=== PATIENT | female | born 1985 | race Caucasian/White ===

== ENCOUNTER → 2016-06-27 | Outpatient (REF) | payer OTHER, SELFPAY ==
[2016-06-27 14:16] LABS: ALBUMIN/GLOBULIN RATIO 1.03 (1.00-1.93); ALKALINE PHOSPHATASE 236 U/L (45-117); ALT/SGPT 48 U/L (12-78); ANION GAP 9 MEQ/L (8-16); AST/SGOT 172 U/L (15-37); BILIRUBIN,TOTAL 0.9 MG/DL (0.2-1.0); BLOOD UREA NITROGEN 9 MG/DL (7-18); CARBON DIOXIDE LEVEL 30 MEQ/L (21-32); CHLORIDE LEVEL 101 MEQ/L (98-107); CREATININE FOR GFR 0.64 MG/DL (0.55-1.02); GLOMERULAR FILTRATION RATE > 60.0 (>60); GLUCOSE, FASTING 106 MG/DL (70-105); POTASSIUM SERUM 4.3 MEQ/L (3.5-5.1); SODIUM LEVEL 140 MEQ/L (136-145); TOTAL PROTEIN 7.9 GM/DL (6.4-8.2)
[2016-06-27 14:36] LABS: BASO % 0.4 % (0.0-1.0); EOS # 0.3 K/mm3 (0.0-0.50); EOS % 3.1 % (0.0-3.0); LARGE UNSTAINED CELL # 0.1 K/mm3 (0.0-0.4); LARGE UNSTAINED CELL % 0.8 % (0.0-4.0); LYMPH # 1.6 K/mm3 (1.5-4.5); LYMPH % 17.7 % (24.0-44.0); MEAN CORPUSCULAR HEMOGLOBIN 34.5 pg (27.0-33.0); MEAN CORPUSCULAR HGB CONC 31.2 g/dl (32.0-36.5); MEAN CORPUSCULAR VOLUME 110.6 fl (80.0-96.0); MONO # 0.5 K/mm3 (0.0-0.8); MONO % 5.6 % (0.0-5.0); NEUTROPHILS # 6.3 K/mm3 (1.8-7.7); NEUTROPHILS % 72.4 % (36.0-66.0); PLATELET COUNT, AUTOMATED 196 k/mm3 (150-450); RED CELL DISTRIBUTION WIDTH 18.3 % (11.5-14.5); WHITE BLOOD COUNT 8.7 K/mm3 (4.0-10.0)
[2016-06-27 14:44] LABS: ADD MORPHOLOGY? YES; FOLATE 2.7 NG/ML; VITAMIN B12 LEVEL 609 PG/ML
[2016-06-27 15:20] LABS: ANISOCYTOSIS 2+; STOMATOCYTES 1+
[2016-06-27 15:42] LABS: ERYTHROCYTE SEDIMENTATION RATE 21 mm/hr (0-20)
[2016-06-28 12:49] LABS: ALBUMIN % 52.6 % (55.8-66.1)
[2016-06-28 12:50] LABS: ALBUMIN 4.16 GM/DL (3.29-5.55)
[2016-07-01 14:17] LABS: Lyme Disease IgG/IgM Antibodie <0.91 ISR (0.00-0.90); Lyme Disease IgM Ab Quantitati <0.80 index (0.00-0.79)
== END ==
LOC: M LABNEURO 13:12
PROVIDERS: ATTEND Psychiatry & Neurology Neurology
DX: G62.9 Polyneuropathy, unspecified (principal)

== ENCOUNTER → 2016-08-23 | Outpatient (CLI) | payer OTHER ==
[2016-08-23 10:59] LABS: BASO % 0.4 % (0.0-1.0); EOS # 0.3 K/mm3 (0.0-0.50); EOS % 3.3 % (0.0-3.0); LARGE UNSTAINED CELL # 0.1 K/mm3 (0.0-0.4); LARGE UNSTAINED CELL % 1.1 % (0.0-4.0); LYMPH # 1.9 K/mm3 (1.5-4.5); LYMPH % 22.6 % (24.0-44.0); MEAN CORPUSCULAR HEMOGLOBIN 32.9 pg (27.0-33.0); MEAN CORPUSCULAR HGB CONC 31.9 g/dl (32.0-36.5); MEAN CORPUSCULAR VOLUME 103.4 fl (80.0-96.0); MONO # 0.5 K/mm3 (0.0-0.8); MONO % 5.9 % (0.0-5.0); NEUTROPHILS # 5.4 K/mm3 (1.8-7.7); NEUTROPHILS % 66.6 % (36.0-66.0); PLATELET COUNT, AUTOMATED 195 k/mm3 (150-450); RED CELL DISTRIBUTION WIDTH 15.2 % (11.5-14.5); WHITE BLOOD COUNT 8.2 K/mm3 (4.0-10.0)
[2016-08-23 11:25] LABS: ALBUMIN 3.5 GM/DL (3.2-5.2); ALBUMIN/GLOBULIN RATIO 0.92 (1.00-1.93); ALKALINE PHOSPHATASE 258 U/L (45-117); ALT/SGPT 63 U/L (12-78); ANION GAP 7 MEQ/L (8-16); AST/SGOT 202 U/L (15-37); BILIRUBIN,TOTAL 0.8 MG/DL (0.2-1.0); BLOOD UREA NITROGEN 8 MG/DL (7-18); CALCIUM LEVEL 9.2 MG/DL (8.5-10.1); CARBON DIOXIDE LEVEL 29 MEQ/L (21-32); CHLORIDE LEVEL 103 MEQ/L (98-107); CHOLESTEROL LEVEL 163 MG/DL (<200); CREATININE FOR GFR 0.58 MG/DL (0.55-1.02); FREE T4 1.15 NG/DL (0.76-1.46); GLOMERULAR FILTRATION RATE > 60.0 (>60); GLUCOSE, FASTING 97 MG/DL (70-105); POTASSIUM SERUM 4.9 MEQ/L (3.5-5.1); SODIUM LEVEL 139 MEQ/L (136-145); TOTAL PROTEIN 7.3 GM/DL (6.4-8.2); TRIGLYCERIDES LEVEL 156 MG/DL (<150)
== END ==
LOC: M LAB 10:00
PROVIDERS: ATTEND Physician Assistant
DX: I12.9 Hypertensive chronic kidney disease with stage 1 through stage 4 chronic kidney disease, or unspecified chronic kidney disease (principal); N18.9 Chronic kidney disease, unspecified

== ENCOUNTER → 2016-10-01 | Outpatient (CLI) | payer OTHER ==
--- NOTE | 2016-10-01 18:19 | ECHO ---
DATE OF PROCEDURE: 10/01/2016 REFERRING PHYSICIAN: CHRISTY Boyer PATIENT LOCATION: Outpatient. INDICATION: Edema. HEIGHT: 165 cm WEIGHT: 100 kg DIMENSIONS: IVS: 1.2 LV: 3.8 LVPW: 1.2 LA: 3.4 Aorta: 2.5 FINDINGS: The study is of acceptable technical quality considering patient's body habitus. Left ventricle is of normal size and systolic function with estimated ejection fraction (EF) of 60 to 65%. Mild left ventricular hypertrophy is noted. I cannot rule out subtle wall motion abnormalities with certainty. The right ventricle appears normal. The left atrium appears mildly enlarged. Right atrium is normal. Aortic valve is normal. Mitral valve exhibits mild degenerative abnormalities. Tricuspid valve appears normal. Pulmonic valve also appears normal. No pericardial effusion is noted. Inferior vena cava is normal size. Aortic root is normal. Aortic arch was well seen and appears normal. Abdominal aorta was not visualized. Doppler interrogation reveals no aortic valvular disease. There is no significant mitral stenosis, but mild mitral insufficiency. There is mild tricuspid insufficiency. Calculated pulmonary artery pressure is within normal limits. Pulmonic valve is functionally competent. Mitral inflow pattern and tissue Doppler imaging of mitral annulus reveal grade 1 diastolic dysfunction. CONCLUSIONS: 1. Study is of acceptable technical quality. 2. Normal left ventricle (LV) size with mild left ventricle hypertrophy and normal LV systolic function. Grade 1 diastolic dysfunction. 3. No significant valvular disease. 4. Likely normal central venous pressure and normal pulmonary artery pressure. COMMENTS: Subacute bacterial endocarditis (SBE) prophylaxis is not recommended. The study does not support cardiac cause of peripheral edema. [facility]
== END ==
LOC: M CARPUL 10:26
PROVIDERS: ATTEND Physician Assistant
DX: R60.9 Edema, unspecified (principal)

== ENCOUNTER → 2016-10-17 | Outpatient (CLI) | payer OTHER ==
[2016-10-17 14:10] LABS: VITAMIN B12 LEVEL 390 PG/ML
[2016-10-17 14:11] LABS: FOLATE > 24.0 NG/ML
[2016-10-17 14:14] LABS: ALBUMIN 3.4 GM/DL (3.2-5.2); ALBUMIN/GLOBULIN RATIO 0.83 (1.00-1.93); ALKALINE PHOSPHATASE 193 U/L (45-117); ALT/SGPT 55 U/L (12-78); ANION GAP 10 MEQ/L (8-16); AST/SGOT 81 U/L (15-37); BILIRUBIN,DIRECT 0.3 MG/DL (0.0-0.2); BILIRUBIN,TOTAL 0.6 MG/DL (0.2-1.0); BLOOD UREA NITROGEN 13 MG/DL (7-18); CALCIUM LEVEL 8.6 MG/DL (8.5-10.1); CARBON DIOXIDE LEVEL 29 MEQ/L (21-32); CHLORIDE LEVEL 99 MEQ/L (98-107); CREATININE FOR GFR 0.61 MG/DL (0.55-1.02); GLOMERULAR FILTRATION RATE > 60.0 (>60); GLUCOSE, FASTING 109 MG/DL (70-105); POTASSIUM SERUM 4.2 MEQ/L (3.5-5.1); SODIUM LEVEL 138 MEQ/L (136-145); TOTAL PROTEIN 7.5 GM/DL (6.4-8.2)
[2016-10-17 14:20] LABS: GAMMA GLUTAMYLTRANSPEPTIDASE 1096 U/L (5-55)
[2016-10-17 15:25] LABS: LABILE ALKPHOS 134 U/L; STABLE ALKPHOS 59 U/L
== END ==
LOC: M SMT 11:26
PROVIDERS: ATTEND Physician Assistant
DX: R60.9 Edema, unspecified (principal); R94.5 Abnormal results of liver function studies

== ENCOUNTER → 2016-11-21 | Outpatient (CLI) | payer OTHER ==
[~2016-11-21] MED LIST: ADV100INH INH; ADV250INH INH; AMLO5TAB2 PO; CYCL10TA PO; CYMB60CA3 PO; FIRS1SOL3 PO; FOLI1TAB4 PO; GABA600T PO; HYDR25TAB PO; LISI-538 PO; LOVE1INJ SC; MECL12.575 PO; MORP2SY IV; OMEP20CA3 PO; ONDA4VLL IV; OPTI0.5D5 OU; OXAZ10CA3 PO; OXAZ15CA4 PO; PENT40TASA PO; PERC2.5T PO; PROT40IN4 IV; SUMA100T2 PO; THIA100T6 PO; THIA100TA PO; VITMTA PO
[2016-11-21 19:20] LABS: ALBUMIN 3.8 GM/DL (3.2-5.2); ALBUMIN/GLOBULIN RATIO 0.83 (1.00-1.93); ALKALINE PHOSPHATASE 252 U/L (45-117); ALT/SGPT 72 U/L (12-78); ANION GAP 11 MEQ/L (8-16); AST/SGOT 122 U/L (15-37); BLOOD UREA NITROGEN 8 MG/DL (7-18); CALCIUM LEVEL 8.6 MG/DL (8.5-10.1); CARBON DIOXIDE LEVEL 29 MEQ/L (21-32); CHLORIDE LEVEL 100 MEQ/L (98-107); CHOLESTEROL LEVEL 214 MG/DL (<200); CREATININE FOR GFR 0.67 MG/DL (0.55-1.02); FREE T4 1.21 NG/DL (0.76-1.46); GLOMERULAR FILTRATION RATE > 60.0 (>60); GLUCOSE, FASTING 142 MG/DL (70-105); POTASSIUM SERUM 3.7 MEQ/L (3.5-5.1); SODIUM LEVEL 140 MEQ/L (136-145); TOTAL PROTEIN 8.4 GM/DL (6.4-8.2); TRIGLYCERIDES LEVEL 156 MG/DL (<150)
[2016-11-21 19:43] LABS: BASO # 0.1 K/mm3 (0.0-0.2); BASO % 0.9 % (0.0-1.0); EOS # 0.2 K/mm3 (0.0-0.50); EOS % 2.4 % (0.0-3.0); LARGE UNSTAINED CELL # 0.1 K/mm3 (0.0-0.4); LARGE UNSTAINED CELL % 1.5 % (0.0-4.0); LYMPH # 2.5 K/mm3 (1.5-4.5); LYMPH % 26.5 % (24.0-44.0); MEAN CORPUSCULAR HEMOGLOBIN 33.5 pg (27.0-33.0); MEAN CORPUSCULAR HGB CONC 33.2 g/dl (32.0-36.5); MEAN CORPUSCULAR VOLUME 100.9 fl (80.0-96.0); MONO # 0.5 K/mm3 (0.0-0.8); MONO % 5.1 % (0.0-5.0); NEUTROPHILS % 63.7 % (36.0-66.0); PLATELET COUNT, AUTOMATED 209 k/mm3 (150-450); RED CELL DISTRIBUTION WIDTH 13.6 % (11.5-14.5); WHITE BLOOD COUNT 9.4 K/mm3 (4.0-10.0)
== END ==
LOC: M SMT 11:40
PROVIDERS: ATTEND Physician Assistant
DX: I12.9 Hypertensive chronic kidney disease with stage 1 through stage 4 chronic kidney disease, or unspecified chronic kidney disease (principal)

== ENCOUNTER → 2016-12-10 | Outpatient (CLI) | payer OTHER ==
[2016-12-10 18:13] LABS: ALBUMIN 3.1 GM/DL (3.2-5.2); ALBUMIN/GLOBULIN RATIO 0.82 (1.00-1.93); ALKALINE PHOSPHATASE 249 U/L (45-117); ALT/SGPT 81 U/L (12-78); ANION GAP 12 MEQ/L (8-16); AST/SGOT 157 U/L (15-37); BILIRUBIN,TOTAL 1.4 MG/DL (0.2-1.0); BLOOD UREA NITROGEN 5 MG/DL (7-18); CALCIUM LEVEL 8.3 MG/DL (8.5-10.1); CARBON DIOXIDE LEVEL 25 MEQ/L (21-32); CHLORIDE LEVEL 106 MEQ/L (98-107); CREATININE FOR GFR 0.61 MG/DL (0.55-1.02); GLOMERULAR FILTRATION RATE > 60.0 (>60); GLUCOSE, FASTING 121 MG/DL (70-105); POTASSIUM SERUM 3.3 MEQ/L (3.5-5.1); SODIUM LEVEL 143 MEQ/L (136-145); TOTAL PROTEIN 6.9 GM/DL (6.4-8.2)
[2016-12-10 18:19] LABS: FOLATE 18.8 NG/ML; VITAMIN B12 LEVEL 492 PG/ML
[2016-12-10 19:03] LABS: BASO % 0.3 % (0.0-1.0); EOS # 0.2 K/mm3 (0.0-0.50); EOS % 2.1 % (0.0-3.0); LARGE UNSTAINED CELL # 0.1 K/mm3 (0.0-0.4); LARGE UNSTAINED CELL % 1.5 % (0.0-4.0); LYMPH # 1.8 K/mm3 (1.5-4.5); LYMPH % 22.5 % (24.0-44.0); MEAN CORPUSCULAR HEMOGLOBIN 34.1 pg (27.0-33.0); MEAN CORPUSCULAR HGB CONC 32.2 g/dl (32.0-36.5); MEAN CORPUSCULAR VOLUME 105.8 fl (80.0-96.0); MONO # 0.5 K/mm3 (0.0-0.8); MONO % 6.8 % (0.0-5.0); NEUTROPHILS % 66.9 % (36.0-66.0); PLATELET COUNT, AUTOMATED 125 k/mm3 (150-450); RED CELL DISTRIBUTION WIDTH 15.8 % (11.5-14.5); WHITE BLOOD COUNT 7.5 K/mm3 (4.0-10.0)
[2016-12-10 19:20] LABS: ADD MORPHOLOGY? YES
[2016-12-10 22:23] LABS: ANISOCYTOSIS 1+
== END ==
LOC: M SMT 10:20
PROVIDERS: ATTEND Physician Assistant
DX: E83.119 Hemochromatosis, unspecified (principal); R73.9 Hyperglycemia, unspecified

== ENCOUNTER 2016-12-19 01:58 | Inpatient (IN) | payer OTHER ==
[~2016-12-19] VITALS: Ht 165.1 cm; Wt 123.0 kg
[2016-12-19] MEDS ORDERED: ADV250INH INH (02:22)
[2016-12-19] MEDS ORDERED: GABA600T PO (02:22)
[2016-12-19] MEDS ORDERED: AMLO5TAB2 PO (02:22)
[2016-12-19] MEDS ORDERED: OMEP20CA3 PO (02:22)
[2016-12-19] MEDS ORDERED: CYMB60CA3 PO (02:22)
[2016-12-19] MEDS ORDERED: CYCL10TA PO (02:22)
[2016-12-19] MEDS ORDERED: SUMA100T2 PO (02:22)
[2016-12-19] MEDS ORDERED: KETOROLAC 30 MG/ML VIAL (J1885) As Ordered ONE (03:08)
[2016-12-19 03:15] LABS: BASO # 0.1 K/mm3 (0.0-0.2); BASO % 0.7 % (0.0-1.0); EOS # 0.2 K/mm3 (0.0-0.50); EOS % 2.7 % (0.0-3.0); LARGE UNSTAINED CELL # 0.1 K/mm3 (0.0-0.4); LARGE UNSTAINED CELL % 1.4 % (0.0-4.0); LYMPH # 2.5 K/mm3 (1.5-4.5); LYMPH % 25.1 % (24.0-44.0); MEAN CORPUSCULAR HEMOGLOBIN 33.6 pg (27.0-33.0); MEAN CORPUSCULAR HGB CONC 32.6 g/dl (32.0-36.5); MEAN CORPUSCULAR VOLUME 103.2 fl (80.0-96.0); MONO # 0.5 K/mm3 (0.0-0.8); MONO % 5.1 % (0.0-5.0); NEUTROPHILS % 64.9 % (36.0-66.0); PLATELET COUNT, AUTOMATED 202 k/mm3 (150-450); WHITE BLOOD COUNT 9.2 K/mm3 (4.0-10.0)
[2016-12-19] MEDS ORDERED: KETOROLAC 30 MG/ML VIAL (J1885) IV ONE (03:15)
[2016-12-19] MEDS ORDERED: NS 1,000 ML IV ONE (03:15)
[2016-12-19] MEDS ORDERED: METOCLOPRAMIDE INJ 10MG/2ML VIAL (J2765) IV ONE (03:15)
[2016-12-19 03:26] LABS: ALBUMIN 3.2 GM/DL (3.2-5.2); ALBUMIN/GLOBULIN RATIO 0.82 (1.00-1.93); ALKALINE PHOSPHATASE 302 U/L (45-117); ALT/SGPT 77 U/L (12-78); AMYLASE 258 U/L (25-115); ANION GAP 15 MEQ/L (8-16); AST/SGOT 185 U/L (15-37); BILIRUBIN,DIRECT 1.4 MG/DL (0.0-0.2); BLOOD UREA NITROGEN 3 MG/DL (7-18); CALCIUM LEVEL 7.7 MG/DL (8.5-10.1); CARBON DIOXIDE LEVEL 27 MEQ/L (21-32); CHLORIDE LEVEL 103 MEQ/L (98-107); GLOMERULAR FILTRATION RATE > 60.0 (>60); GLUCOSE, FASTING 167 MG/DL (70-105); POTASSIUM SERUM 3.5 MEQ/L (3.5-5.1); SODIUM LEVEL 145 MEQ/L (136-145); TOTAL PROTEIN 7.1 GM/DL (6.4-8.2)
[2016-12-19] MEDS ORDERED: diphenhydrAMINE INJ 50MG/ML VIAL (J1200) IV STA (04:05)
[2016-12-19] MEDS ORDERED: ISOVUE-370 76% 100ML VIAL (Q9967) As Ordered ONE (04:10)
[2016-12-19] MEDS ORDERED: MORPHINE 4 MG/ML 1ML SYRINGE IV ONE (04:15)
--- NOTE | 2016-12-19 04:54 | REP ---
Clinical: Abdominal pain and pancreatitis. Technique: Axial contrast enhanced images from the lung bases to the pubic symphysis using 100 ml Isovue 370 intravenous contrast material with coronal and sagittal re-formations. Comparison: None. Findings: Moderate peripancreatic inflammatory stranding and adenopathy is consistent with acute pancreatitis. The gallbladder is mildly distended with small amount of pericholecystic fluid which may reflect underlying acute cholecystitis. The adjacent duodenum demonstrates mural thickening and is encompassed by the peripancreatic inflammatory stranding suggesting the possibility of associated duodenitis. No pseudocyst or drainable collection/abscess identified. The liver demonstrates diffuse heterogeneity suggesting fatty infiltration and/or hepatocellular disease. Spleen, bilateral adrenal glands and right kidney are normal. High density focus within the left kidney may represent nonobstructing calculi versus focus of retained contrast or foreign body related to prior procedure. The enteric system is without obstruction and a mild enterocolitis secondary to pancreatitis cannot be excluded. Pelvis demonstrates normal bladder and age-appropriate uterus/adnexa. No ascites. No free air. No significant retroperitoneal adenopathy. Abdominal aorta and vasculature appears normal. Surrounding musculoskeletal structures are grossly intact without focal osseous abnormality. Lung bases are clear. Impression: 1. Peripancreatic inflammatory stranding and adenopathy is consistent with acute pancreatitis. No pseudocyst, drainable fluid collection/abscess or ascites. Secondary duodenitis and enterocolitis cannot be excluded. 2. Fatty infiltration and/or hepatocellular disease involving the liver is appreciated. 3. The gallbladder is moderately distended with small amount of pericholecystic fluid which is nonspecific, but associated cholecystitis cannot be excluded. 4. Focal radiodense material in the left renal pelvis requires correlation. Differential diagnosis includes foreign body related to prior procedure, focus of retained contrast material, nephrolithiasis. Signed by Chandrakant Allen MD 12/19/2016 04:46 A
[2016-12-19] MEDS ORDERED: VITMTA PO (05:26)
[2016-12-19] MEDS ORDERED: ADV100INH INH (05:26)
[2016-12-19] MEDS ORDERED: OPTI0.5D5 OU (05:26)
[2016-12-19] MEDS ORDERED: HYDR25TAB PO (05:26)
[2016-12-19] MEDS ORDERED: LISI-538 PO (05:26)
[2016-12-19] MEDS ORDERED: MECL12.575 PO (05:26)
[2016-12-19] MEDS ORDERED: IPRATROPIUM 0.5MG/ALBUTEROL 2.5MG INH SOL UD 3ML (DUONEB)(J7620) NEB PRN (05:30)
[2016-12-19] MEDS ORDERED: OXAZEPAM 10 MG CAP PO PRN (05:30)
[2016-12-19] MEDS ORDERED: KETOROLAC 30 MG/ML VIAL (J1885) IV PRN (05:30)
[2016-12-19] MEDS ORDERED: MECLIZINE 12.5 MG TAB PO PRN (05:45)
[2016-12-19] MEDS ORDERED: CYCLOBENZAPRINE 10 MG TAB PO PRN (05:45)
[2016-12-19 06:10] VITALS: BP 146/94
--- NOTE | 2016-12-19 06:22 | HPE ---
DATE OF ADMISSION: 12/19/2016 CODE STATUS: full code CHIEF COMPLAINT: Abdominal pain. HISTORY OF PRESENT ILLNESS: This patient is a 31-year-old female with known history of alcohol abuse and alcohol-related pancreatitis presents to the emergency department after 24 hours of subjective fevers, chills, nausea, vomiting, upper abdominal cramping, colicky tight sharp pain with nausea and vomiting. She has had loose stool with no hematemesis, no hematochezia or melena. She does state that she drinks quite a bit of alcohol, was unable to quantify specifically for me but she does recognize that she does have an issue with alcohol ingestion. Her is accompanying her bedside. He also did state that they are aware that she does get pancreatitis related to her alcoholism. She did inform me that she does have a history of problems with her gallbladder in the past. She has not had a cholecystectomy but informed me that she has never been scheduled for gallbladder surgery. PAST MEDICAL HISTORY: 1. 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 2. Alcohol abuse. 3. Chronic low back pain 4. Depression.5 5. Hypertension. 6. Intermittent benign positional vertigo. 7. Gastrointestinal reflux disease (GERD). 8. Asthma/chronic pulmonary obstructive disease (COPD). 9. History of migraine headaches. 10. History of dry eyes. PAST SURGICAL HISTORY: Unremarkable. FAMILY HISTORY: Noncontributory. ALLERGIES: MORPHINE. HOME MEDICATIONS: - amlodipine 5 mg daily - Flexeril 10 mg daily - Cymbalta 60 mg daily - Neurontin 600 mg three times a day - hydrochlorothiazide 25 mg daily - lisinopril 20 mg daily - meclizine 12.5 mg every 6 hours taken as needed - omeprazole 20 mg daily - multivitamin 1 tablet daily - Advair Diskus 100/50 microgram inhaler one inhalation twice a day - Sumatriptan 100 mg as directed for migraines. - Refresh ophthalmic as directed for dry eyes four times a day as needed REVIEW OF SYSTEMS: CONSTITUTIONAL: She states she has had some subjective fevers, chills, no rigors. She has had decreased appetite as outlined above. HEENT: No headache, lightheaded, dizziness, blurry vision, double vision or tinnitus but she felt she has had dry mouth. PULMONARY: She denies productive sputum. She does have continuous cough related to her COPD/asthma and does continue to smoke. We did discuss smoking cessation, education was provided and encouraged to discontinue. I did offer a Nicoderm patch which she refused. CARDIOVASCULAR: She denies chest pain, paroxysmal nocturnal dyspnea (PND), or orthopnea. No lower extremity edema. GASTROINTESTINAL (GI): As outlined above, epigastric pain with distension, nausea, vomiting, unable to tolerate oral intake, loose stool but she denies any hematemesis. No hematochezia or melena. GENITOURINARY (): No dysuria, frequency or hematuria. MUSCULOSKELETAL: No bone loss or joint pain swelling or erythema. NEUROLOGIC: No paresthesias or paralysis. ENDOCRINE: Negative for diabetes. Negative for thyroid disorder. LYMPHATICS: No lumps, bumps, swelling in neck, axilla or groin. No night sweats. No weight loss. HEMATOLOGY: No bleeding or bruising disorder. No venous thromboembolism. ONCOLOGY: No history of cancer. PSYCHIATRIC: Positive for depression but she denies suicidal ideation. No audio or visual hallucinations. REVIEW OF SYSTEMS: 10-point review of systems complete, pertinent positives are listed. PHYSICAL EXAMINATION: VITAL SIGNS: Temperature is 98.6, pulse 102 and regular, respiratory rate is 18 , blood pressure (BP) 149/99, SPO2 is 96% on room air. GENERAL: The patient appears to be in no acute distress. She is alert, pleasant. HEENT: Head is atraumatic, normocephalic. Eyes: Pupils equal, round, and reactive to light and accommodation (PERRLA), throat clear. NECK: Supple. Unable to evaluate jugular venous distention (JVD) due to body habitus. Mucous membranes do appear to be slightly dry. LUNGS: Lungs are clear to auscultation bilaterally. HEART: Regular rate and rhythm. ABDOMEN: Obese, distended. Positive bowel sounds. She does have some epigastric tenderness noted but no peritoneal signs. EXTREMITIES: No edema. No calf tenderness. LABORATORY DATA: Alcohol level 0.317. White count 9.2, hemoglobin 14, platelets are 202. Sodium 145, potassium 3.5, chloride 103, bicarb 27, anion gap 15, BUN is 3, creatinine 0.6, glucose is 167, calcium 7.7, total bilirubin is 2.0, direct bilirubin is 1.4, AST 185, ALT is 77, alkaline phosphatase 302, albumin 3.2, amylase 258, lipase 3704. CT of the abdomen and pelvis, peripancreatic inflammatory stranding. Adenopathy consistent with acute pancreatitis. No pseudocyst, no drainable fluid collection, no abscess or ascites noted. She does have some secondary duodenitis and colitis could not be excluded. Fatty infiltration and/or hepatocellular disease involving the liver is appreciated. This will likely need outpatient followup. The gallbladder did appear to be moderately distended with a small amount of pericholecystic fluid nonspecific, but associated cholecystitis could not be excluded. Focal radiodensity material in the left renal pelvis requiring correlation, possibly retained contrast material; nephrolithiasis versus foreign body related prior procedure. IMPRESSION: This patient is a 31-year-old female who unfortunately does have ongoing issues with chronic alcohol abuse and recurrent pancreatitis, as well as gallbladder disease. She will need to be admitted. We will make her nothing by mouth, continue with intravenous (IV) fluids as outlined and pain control and will do some further workup on her intra-abdominal findings on the CT scan. PROBLEM LIST: 1. Acute pancreatitis. 2. Alcohol abuse. 3. Gallbladder disease. 4. Fatty liver disease. 5. Questionable left renal disease. 6. Chronic pulmonary obstructive disease (COPD). 7. Hypertension. 8. Depression. 9. Chronic low back pain. PLAN: The patient admitted to med-surg, nothing by mouth, intravenous (IV) fluids. Will continue her home medications. Hold parameters on her blood pressure medications. Will additionally start her on Serax, thiamine, multivitamin and monitor for alcohol withdrawal symptoms. IV Ativan as needed for breakthrough anxiety. Will also place a patient and family services (PFS) consult regarding her continued alcoholism. Will do an ultrasound of the abdomen. Will plan on repeating her labs in the morning, follow her lipase. Deep venous thrombosis ( DVT) prophylaxis with Lovenox. DISPOSITION: Anticipate her stay to be greater than two midnights. [facility]
[2016-12-19] MEDS: LORazepam 2 MG/ML VIAL (J2060) IV PRN ×2 (06:31→16:09)
[2016-12-19] MEDS: NS 1,000 ML IV SCH ×5 (06:32→21:16)
[2016-12-19] MEDS: PERCOCET 5MG/325MG TAB PO PRN ×3 (06:32→18:04)
[2016-12-19] MEDS: IPRATROPIUM 0.5MG/ALBUTEROL 2.5MG INH SOL UD 3ML (DUONEB)(J7620) NEB SCH ×3 (08:00→23:31)
[2016-12-19] MEDS: ADVAIR HFA 45/21MCG INHALER INH SCH ×2 (08:51→20:13)
[2016-12-19] MEDS: GABAPENTIN 300 MG CAP PO SCH ×3 (10:30→21:50)
[2016-12-19] MEDS: ONDANSETRON 4MG/2ML VIAL (J2405) IV PRN (10:30)
[2016-12-19] MEDS: DULoxetine 30 MG CAP (CYMBALTA) PO SCH (10:30)
[2016-12-19] MEDS: FOLIC ACID 1 MG TAB PO SCH (10:31)
[2016-12-19] MEDS: amLODIPine 5 MG TAB PO SCH (10:31)
[2016-12-19] MEDS: OMEPRAZOLE 20 MG CAP PO SCH (10:31)
[2016-12-19] MEDS: LISINOPRIL 20 MG TAB PO SCH (10:32)
[2016-12-19] MEDS: hydroCHLOROthiazide 25 MG TAB PO SCH (10:32)
[2016-12-19] MEDS: THIAMINE 100 MG TAB PO SCH (10:32)
[2016-12-19] MEDS: MULTIVITAMINS/MINERALS THERAP 1 TAB PO SCH (10:32)
[2016-12-19] MEDS: ENOXAPARIN 40 MG/0.4 ML SYRINGE (J1650) SC SCH (10:33)
[2016-12-19 14:00] VITALS: BP 141/94
[2016-12-19 14:40] VITALS: BP 141/94
[2016-12-19] MEDS: MORPHINE 2 MG/ML 1ML SYRINGE IV PRN ×2 (15:20→21:50)
[2016-12-19] MEDS: LORazepam 2 MG TAB PO SCH ×2 (17:56→21:50)
--- NOTE | 2016-12-19 18:26 | REP ---
COMPLETE ABDOMINAL ULTRASOUND: 12/19/2016. Clinical history: Pancreatitis, evaluate gallbladder. Questionable foreign body versus other in the lower pole left kidney. Findings: Sonographic evaluation of the liver is challenging because of body habitus considerations. It is diffusely fatty replaced, difficult to penetrate and has slight lobulated margins suggesting chronic liver disease. There is a trace amount of fluid around the capsule on some images. The pancreas is not seen on this examination. The gallbladder measured 8.9 x 4.8 x 5 cm. There is no definite stone or sludge. Some questionable pericholecystic fluid or wall thickening anteriorly but the remainder of the wall is grossly intact. The spleen is mildly enlarged 14.3 x 13.6 x 3.8 cm. No focal splenic lesion. The right kidney 10.2 x 5.8 x 4.5 cm. The left kidney is 12 x 5.4 x 5.1 cm. Cortical thickness and echogenicity were normal. In the lower pole of the left kidney there is echogenic region without shadowing. This is very clearly metallic density by CT and she has denied any intervention. No generalized ascites, just a trace amount around the liver. Impression: 1. Diffuse fatty infiltration of liver, liver enlarged and lobulated margins consistent with some chronic liver disease. 2. Gallbladder adequately distended without visible mass, stone or sludge. Focal wall thickening anteriorly to 10 mm, may reflect a small amount adjacent fluid. There is no generalized ascites, just that trace amount around the liver. 3. Pancreas obscured by gas shadowing. The common bile duct 5.4 mm and without filling defect. 4. Mild splenomegaly without focal lesion. 5. Kidneys are normal in size, echogenicity and cortical thickness. There is echogenic focus in the lower pole which on CT is clearly a metallic focus. The patient denies any intervention. Signed by Mateus Chaney MD 12/19/2016 06:42 P
--- NOTE | 2016-12-19 18:35 | ECGEPIP ---
Stationary ECG Study [facility] Test Date: 2016-12-19 Pat Name: DON STEPHENS Department: Room: [place] [address] Gender: F Transportation Consultant: : [id number] Requested By: JANELL WILCOX Order Number: [id number] Reading MD: Cb Aguilera Measurements Intervals [place] Rate: 121 P: 28 OR: 132 QRS: 11 QRSD: 88 T: 15 QT: 315 QTc: 449 Interpretive Statements SINUS TACHYCARDIA Otherwise normal Electronically Signed On 12-19-2016 18:35:08 EDT by Cb Aguilera
[2016-12-19 22:00] VITALS: BP 133/84
[2016-12-20] VITALS (23 sets, daily range): BP systolic 108–152; BP diastolic 62–87; O2SAT 94
[2016-12-20] MEDS: NS 1,000 ML IV SCH ×7 (01:16→23:01)
[2016-12-20] MEDS: LORazepam 2 MG TAB PO SCH ×5 (01:16→20:07)
[2016-12-20] MEDS: PERCOCET 5MG/325MG TAB PO PRN ×3 (01:16→20:06)
[2016-12-20 06:43] LABS: MEAN CORPUSCULAR HEMOGLOBIN 34.5 pg (27.0-33.0); MEAN CORPUSCULAR HGB CONC 31.6 g/dl (32.0-36.5); RED CELL DISTRIBUTION WIDTH 15.8 % (11.5-14.5)
[2016-12-20 06:51] LABS: MEAN CORPUSCULAR VOLUME 109.2 fl (80.0-96.0)
[2016-12-20 07:08] LABS: ALBUMIN/GLOBULIN RATIO 0.75 (1.00-1.93); BILIRUBIN,TOTAL 4.7 MG/DL (0.2-1.0); CALCIUM LEVEL 6.3 MG/DL (8.5-10.1); CREATININE FOR GFR 1.46 MG/DL (0.55-1.02); GLOMERULAR FILTRATION RATE 43.9 (>60); POTASSIUM SERUM 3.7 MEQ/L (3.5-5.1)
[2016-12-20] MEDS ORDERED: SODIUM CHLORIDE 0.9% 1000 ML IV ONE (07:45)
[2016-12-20] MEDS: IPRATROPIUM 0.5MG/ALBUTEROL 2.5MG INH SOL UD 3ML (DUONEB)(J7620) NEB SCH ×3 (08:00→19:48)
[2016-12-20 08:42] LABS: ABG BASE EXCESS -3.3 (-2.0-2.0); ABG PARTIAL PRESSURE CO2 52.7 mmHg (35.0-45.0); ABG PARTIAL PRESSURE O2 77.3 mmHg (75.0-100.0); ABG STANDARD HCO3 21.7 MEQ/L (22.0-26.0); ABG TOTAL CO2 25.7 MEQ/L (22.0-29.0); ABG pH (ARTERIAL) 7.277 UNITS (7.350-7.450)
[2016-12-20] MEDS: hydroCHLOROthiazide 25 MG TAB PO SCH (09:00)
[2016-12-20] MEDS: GABAPENTIN 300 MG CAP PO SCH ×3 (09:00→20:06)
[2016-12-20] MEDS: amLODIPine 5 MG TAB PO SCH (09:00)
[2016-12-20] MEDS: DULoxetine 30 MG CAP (CYMBALTA) PO SCH (09:00)
[2016-12-20] MEDS: OMEPRAZOLE 20 MG CAP PO SCH (09:00)
[2016-12-20] MEDS: ENOXAPARIN 40 MG/0.4 ML SYRINGE (J1650) SC SCH (09:00)
[2016-12-20] MEDS: MULTIVITAMINS/MINERALS THERAP 1 TAB PO SCH (09:00)
[2016-12-20] MEDS: FOLIC ACID 1 MG TAB PO SCH (09:00)
[2016-12-20] MEDS: LISINOPRIL 20 MG TAB PO SCH (09:00)
[2016-12-20] MEDS: THIAMINE 100 MG TAB PO SCH (09:00)
[2016-12-20] MEDS: ADVAIR HFA 45/21MCG INHALER INH SCH ×2 (09:14→19:47)
--- NOTE | 2016-12-20 09:30 | REP ---
CT ABDOMEN PELVIS WITHOUT CONTRAST: 12/20/2016 COMPARISON: CT abdomen pelvis with contrast 12/19/2016. CLINICAL HISTORY: Rule out necrotizing pancreatitis. Noncontrast scanning through the abdomen pelvis with coronal and sagittal reconstructions provided. CT ABDOMEN: The lung bases show minor atelectasis in both deep sulci. No effusion or dense consolidation. Heart not enlarged. No pericardial thickening or effusion. Small hiatal hernia noted. There is hepatomegaly with a 20 cm vertical diameter of the liver in the midclavicular line and with enlarged left lobe. Diffuse extensive fatty infiltration throughout the liver is noted without focal hepatic mass. Gallbladder shows no calcified mass or stone is mildly distended. There is splenomegaly with a 15 cm vertical diameter of the spleen but no focal lesion. There adrenal glands normal. There is a tiny metallic density in the left kidney lower pole as on yesterday's CT and ultrasound study within the collecting system. No hydronephrosis or hydroureter. Peripancreatic inflammatory changes seen. There is evidence of duodenitis and colitis with extensive edema in the right colon, hepatic flexure with thickening of the wall of the both those sections of colon, less colitis in the transverse, splenic flexure and left colon. I do not see evidence of necrotizing pancreatitis or destruction of pancreatic tissue inflammatory changes are not much changed. Thickening of the lateral conal fascia and Gerota's fascia along the anterior pararenal space on each side noted. Lung window review of all CT slices abdomen pelvis shows no perforation or abscess. Bone windows show minor degenerative changes in the spine. Visualized ribs intact. CT PELVIS: The bony hips, pelvis, sacrum, SI joints and lumbosacral junction intact without acute finding. There is no ureteral or renal stone. Bladder is partially filled without abnormality. Small amount of pelvic free fluid noted. Uterus not enlarged. No pelvic or adnexal mass. Distal left colon, sigmoid and rectum without distention and the colon collapsed. No ventral or inguinal hernia. Contrast from yesterday's CT is in the bladder. IMPRESSION: 1. Peripancreatic inflammatory changes consistent with acute pancreatitis without pseudocyst, abscess or necrotizing component of pancreatitis. 2. Hepatomegaly and diffuse fatty infiltration of the liver with trace ascites in the abdomen and small ascites in the deep pelvis. Fluid tracking in the peroneal gutters and along the Gerota's fascia of the anterior pararenal space. 3. Colitis, particularly prominent and edematous right colon, hepatic flexure and proximal transverse colon with less edema of the splenic flexure and left colon. Distal normal. 4. Gallbladder distended without calcified stone. No layering sludge visible. 5. Metallic density in the renal pelvis on the left lower pole as described with trace amounts of contrast residual from yesterday's CT of the bladder as well. No hydronephrosis. Signed by Mateus Chaney MD 12/20/2016 10:12 P
--- NOTE | 2016-12-20 09:31 | REP ---
AP PORTABLE CHEST: 12/20/2016 COMPARISON: Chest 05/16/2016, lung windows from CT abdomen pelvis 12/20/2016. CLINICAL HISTORY: Abnormal lung sounds. Bibasilar atelectasis and low level of inflation with crowded markings throughout. Heavier atelectasis or infiltrates on the left with partial silhouetting of the left diaphragm. Heart size not grossly enlarged for this degree of inflation. Airway intact. Mediastinal contours normal for AP portable hypoinflated study. Crowded markings in the perihilar regions. IMPRESSION: 1. Very hypoinflated chest with crowded marking but and with patchy bibasilar atelectasis or infiltrates, left greater than right. This corresponds to the finding on lung windows from the CT abdomen today. Signed by Mateus Chaney MD 12/20/2016 10:12 P
[2016-12-20] MEDS: CALCIUM GLUCONATE 1,000 MG in D5W MINI-BAG PLUS 100 ML IV SCH ×5 (09:47→17:49)
[2016-12-20 11:16] LABS: INR 1.26
[2016-12-20] MEDS: MORPHINE 2 MG/ML 1ML SYRINGE IV PRN ×3 (11:48→23:14)
[2016-12-20] MEDS ORDERED: SLF 3 ML SYR IV PRN (13:45)
[2016-12-20] MEDS: SLF 3 ML SYR IV SCH ×2 (14:00→23:00)
[2016-12-20 14:02] LABS: IONIZED CALCIUM 3.5 MG/DL (4.5-5.3)
[2016-12-20 14:12] LABS: BASO % 0.5 % (0.0-1.0); EOS # 0.3 K/mm3 (0.0-0.50); EOS % 2.9 % (0.0-3.0); LARGE UNSTAINED CELL # 0.1 K/mm3 (0.0-0.4); LARGE UNSTAINED CELL % 0.9 % (0.0-4.0); LYMPH # 1.8 K/mm3 (1.5-4.5); MEAN CORPUSCULAR HEMOGLOBIN 35.1 pg (27.0-33.0); MEAN CORPUSCULAR HGB CONC 32.2 g/dl (32.0-36.5); MONO # 0.4 K/mm3 (0.0-0.8); MONO % 4.4 % (0.0-5.0); NEUTROPHILS # 6.9 K/mm3 (1.8-7.7); NEUTROPHILS % 73.4 % (36.0-66.0); RED CELL DISTRIBUTION WIDTH 15.5 % (11.5-14.5); WHITE BLOOD COUNT 9.4 K/mm3 (4.0-10.0)
[2016-12-20 14:18] LABS: ABG BASE EXCESS -3.6 (-2.0-2.0); ABG HCO3 22.9 MEQ/L (22.0-26.0); ABG PARTIAL PRESSURE O2 87.3 mmHg (75.0-100.0); ABG STANDARD HCO3 21.5 MEQ/L (22.0-26.0); ABG TOTAL CO2 24.3 MEQ/L (22.0-29.0); ABG pH (ARTERIAL) 7.305 UNITS (7.350-7.450)
[2016-12-20 14:25] LABS: ADD MORPHOLOGY? YES
[2016-12-20 14:27] LABS: ALBUMIN 2.8 GM/DL (3.2-5.2); ALBUMIN/GLOBULIN RATIO 0.8 (1.00-1.93); BILIRUBIN,TOTAL 5.3 MG/DL (0.2-1.0); CALCIUM LEVEL 6.5 MG/DL (8.5-10.1); CREATININE FOR GFR 1.14 MG/DL (0.55-1.02); GLOMERULAR FILTRATION RATE 58.4 (>60); POTASSIUM SERUM 3.9 MEQ/L (3.5-5.1); TOTAL PROTEIN 6.3 GM/DL (6.4-8.2)
--- NOTE | 2016-12-20 14:31 | IPNPDOC ---
Text Note Date of Service The patient was seen on 12/20/16. NOTE Subjective: Patient seen and examined at bedside initially on med/surg floor then in ICU. Patient was urgently transferred to ICU. She admits to increased shortness of breath and severe abdominal pain. Admits to chill and nausea. Denies diarrhea. Denies any other current new complaints. Objective: Vitals: (See below) General: Patient is a morbidly obese young female laying comfortably in bed, AAOx3, appeared to be drowsy and in moderate distress, with head elevated at 30 degrees HEENT: Normal cephalic atraumatic, Extraocular motion intact, pupil equal round and reactive to light, ~mucosal membrane moist, neck supple, no neck lymphadenopathy Cardio: tachycardic, Normal S1, S2, No murmur/rubs/gallops Pulm: moderate wheezing b/l, slight rales b/l Abdomen: + bowel sounds, soft, diffusely severely tender to palpation, slightly distended, no peritoneal signs, no ecchymosis, no masses that were palpable Ext: No edema, clubbing, or cynosis Skin: Warm and dry Neuro: Cranial Nerve 2 through 12 intact, No focal neurological deficit Labs ( See below) Most significantly: WBC 12 from 9, MCV 109, Plt 139 from 202, Cr 1.46 from 0.6, T bili 4.7 from 2, AST 168, LDH 453, albu 3, Lipase 7513 from 3704, ABG 7./, Blood culture pending Urine culture pending Images/Procedures: CT of A&P without contrast at 9:25: acute pancreatitis, hepatomegaly and fatty liver with trace to small ascities, fluid tracking peroneal gutters, colitis, distended gallbladder, no sludges. CXR at 8:25: Very hypoinflated chest, patchy bibasilar atelectasis or infiltrate L>R Assessment and Plan: 1. 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 - symptomatically worse today - Repeat CT abdomen and pelvis today didnt show necrotizing pancreatitis - Intra abdominal pressure was elevated to 26, likely due to obesity vs. possible abdominal compartment syndrome, c/s General Surgery, appreciate their help - IVF 2 L NS bolus in am - IVF NS at 250 mlh - Pain control with Percocet 1tab q4hp, morphin 4mg q4hp 2. Acute hypercarbic respiratory acidosis likely secondary to asthma vs pulmonary edema vs inflammation with history of Asthma/COPD - ABG shows resp acidosis - Discussed with pulmonary and recommended Bilevel noneinvasive ventilator - Repeat ABG 2 hours after start of BNIV 3. Elevated intrabdominal pressure possibilly due to obesity vs. abdominal compartment syndrome less likely due to only small ascites from CT of abdomen and pelvis. - c/s general surgery 4. Colitis most prominent in right colon and hepatic flexure, possibily related to pancreatitis - c/s general surgery - Consider abx therapy if patient develop fever 5. DOMINGA - Likely from pancreatitis and third spacing - urine lytes ordered pending, will calculate FeNa 6. Alcohol abuse - elevated EtOH on admission - Ativan PRN for withdraw and anxiety 7. Gallbladder disease - 12/19/16 abdominal US didnt show Gallbladder wall thickening or stone, however 8. Fatty liver disease - Likely from alcoholic abuse 9. Questionable left renal disease - Patient has DOMINGA - Still making urine output - CT didnt show pylonephrosis 10. Chronic low back pain - Stable, no complaints 11. Depression - On home med 12. Hypertension. - HOLD BP meds Norvasc, Lisinopril due to a concern of third spacing - Resume BP meds as needed 13. Intermittent benign positional vertigo. 14. Gastrointestinal reflux disease (GERD). - home PPI 15. History of migraine headaches. 16. Chronic back pain 17. History of dry eyes. DVT prophylaxis: Hep sc 5000 q8h Fluid, Electrolytes, Nutrition: NS 250 mlh, NPO with sips and meds Code: Not discussed/Full Disposition: Guarded prognosis in ICU VS,Tobias, I+O VS, Tobias, I+O Laboratory Tests 12/20/16 06:24 Red Blood Count 3.81 L, Mean Corpuscular Volume 109.2 #H, Mean Corpuscular Hemoglobin 34.5 H, Mean Corpuscular Hemoglobin Concent 31.6 L, Red Cell Distribution Width 15.8 H, Calcium Level 6.3 #L, Aspartate Amino Transf (AST/ SGOT) 168 H, Alanine Aminotransferase (ALT/SGPT) 68, Alkaline Phosphatase 251 H , Total Bilirubin 4.7 #H, Total Protein 7.0, Albumin 3.0 L 12/20/16 13:48 Red Blood Count 3.56 L, Mean Corpuscular Volume 109.0 H, Mean Corpuscular Hemoglobin 35.1 H, Mean Corpuscular Hemoglobin Concent 32.2, Red Cell Distribution Width 15.5 H, Neutrophils (%) (Auto) 73.4 H, Lymphocytes (%) (Auto ) 18.0 L, Monocytes (%) (Auto) 4.4, Eosinophils (%) (Auto) 2.9, Basophils (%) ( Auto) 0.5, Neutrophils # (Auto) 6.9, Lymphocytes # (Auto) 1.8, Monocytes # (Auto ) 0.4, Eosinophils # (Auto) 0.3, Basophils # (Auto) 0.0 Vital Signs Date Time Temp Pulse Resp B/P (MAP) Pulse Ox O2 Delivery O2 Flow Rate FiO2 12/20/16 12:00 98.6 119 20 130/80 (97) 98 NIPPV (BIPAP/CPAP) 30 12/20/16 12:00 2.0 I&O- Last 24 Hours up to 6 AM 12/20/16 06:00 Intake Total 3540 ml Output Total 0 ml Balance 3540 ml GME ATTESTATION GME ATTESTATION My preceptor for this patient encounter was physically present in the building during the encounter and was fully available. As needed, all aspects of the patient interview, examination, medical decision making process, and medical care plan development were reviewed and approved by the preceptor. Preceptor is aware and concurs with the plan as stated in the body of this note and will attest to such by his/her cosignature. ATTENDING NOTE I, Markus Wilcox, have both independently examined this patient as well as reviewed the documentation. I have discussed in detail with the resident the findings and plan of treatment as documented in the residents documentation. I will continue to follow the patient and offer further guidance to the patients care as necessary during this hospital stay. MARCELL MOULTON DO Dec 20, 2016 14:31 MARKUS WILCOX MD Dec 21, 2016 17:35
[2016-12-20 14:40] LABS: MAGNESIUM LEVEL 0.9 MG/DL (1.8-2.4)
[2016-12-20] MEDS: HEPARIN SOD (PORCINE) 5000 UNITS/ML VIAL SQ SCH ×2 (14:51→23:00)
[2016-12-20 15:21] LABS: ANISOCYTOSIS 1+; PLATELET CLUMPS SMALL AMT
[2016-12-20] MEDS: MAG SULF 1GM/100ML (MAG RUN) 1 GM in APPROPRIATE DILUENT 1 EA IV SCH ×3 (15:21→18:45)
[2016-12-20 15:23] LABS: PLATELET COUNT, AUTOMATED 102 k/mm3 (150-450)
[2016-12-20] MEDS: NYSTATIN 100,000 UNITS/GM TOPICAL PWD 15 GM TOP SCH (20:07)
[2016-12-20 21:07] LABS: IONIZED CALCIUM 3.8 MG/DL (4.5-5.3)
[2016-12-20 21:19] LABS: BASO % 0.4 % (0.0-1.0); EOS # 0.2 K/mm3 (0.0-0.50); EOS % 2.8 % (0.0-3.0); LARGE UNSTAINED CELL # 0.1 K/mm3 (0.0-0.4); LARGE UNSTAINED CELL % 1.5 % (0.0-4.0); LYMPH # 1.6 K/mm3 (1.5-4.5); LYMPH % 18.9 % (24.0-44.0); MEAN CORPUSCULAR HGB CONC 32.5 g/dl (32.0-36.5); MEAN CORPUSCULAR VOLUME 107.8 fl (80.0-96.0); MONO # 0.4 K/mm3 (0.0-0.8); MONO % 4.8 % (0.0-5.0); NEUTROPHILS # 5.9 K/mm3 (1.8-7.7); NEUTROPHILS % 71.6 % (36.0-66.0); RED CELL DISTRIBUTION WIDTH 15.3 % (11.5-14.5); WHITE BLOOD COUNT 8.2 K/mm3 (4.0-10.0)
[2016-12-20 21:20] LABS: ADD MORPHOLOGY? YES; PLATELET COUNT, AUTOMATED 93 k/mm3 (150-450)
[2016-12-20 21:22] LABS: ANISOCYTOSIS 1+; STOMATOCYTES 1+
[2016-12-20 21:36] LABS: ALBUMIN 2.7 GM/DL (3.2-5.2); ALBUMIN/GLOBULIN RATIO 0.79 (1.00-1.93); ALKALINE PHOSPHATASE 217 U/L (45-117); ALT/SGPT 57 U/L (12-78); ANION GAP 11 MEQ/L (8-16); AST/SGOT 172 U/L (15-37); BILIRUBIN,TOTAL 5.5 MG/DL (0.2-1.0); BLOOD UREA NITROGEN 7 MG/DL (7-18); CALCIUM LEVEL 7.1 MG/DL (8.5-10.1); CARBON DIOXIDE LEVEL 23 MEQ/L (21-32); CHLORIDE LEVEL 107 MEQ/L (98-107); CREATININE FOR GFR 0.73 MG/DL (0.55-1.02); GLOMERULAR FILTRATION RATE > 60.0 (>60); GLUCOSE, FASTING 103 MG/DL (70-105); MAGNESIUM LEVEL 1.8 MG/DL (1.8-2.4); POTASSIUM SERUM 3.2 MEQ/L (3.5-5.1); SODIUM LEVEL 141 MEQ/L (136-145); TOTAL PROTEIN 6.1 GM/DL (6.4-8.2)
[2016-12-20] MEDS ORDERED: POTASSIUM CHLORIDE 10 MEQ SR TABLET PO ONE (22:30)
[2016-12-20] MEDS ORDERED: CALCIUM GLUCONATE 1,000 MG in D5W MINI-BAG PLUS 100 ML IV ONE (22:30)
[2016-12-20] MEDS ORDERED: MAG SULF 1GM/100ML (MAG RUN) 1 GM in APPROPRIATE DILUENT 1 EA IV ONE (23:30)
[2016-12-20] MEDS ORDERED: MULTIVITAMIN -ADULT INJECTION 10 ML, THIAMINE INJection 100 MG, FOLIC ACID 1 MG in NS 1... IV ONE (23:30)
[2016-12-20] MEDS ORDERED: fentaNYL 12 MCG/HR PATCH TOP SCH (23:30)
[2016-12-20] MEDS ORDERED: FENTANYL REMOVAL DOCUMENTATION MISC XX SCH (23:30)
[2016-12-21] VITALS (19 sets, daily range): BP systolic 102–143; BP diastolic 59–88; O2SAT 92–97
[2016-12-21] MEDS: IPRATROPIUM 0.5MG/ALBUTEROL 2.5MG INH SOL UD 3ML (DUONEB)(J7620) NEB SCH ×4 (01:47→19:07)
[2016-12-21] MEDS: PANTOPRAZOLE 40MG INJ (PROTONIX) (C9113) IV SCH (02:09)
[2016-12-21] MEDS: LORazepam 2 MG TAB PO SCH ×3 (02:15→14:13)
[2016-12-21 05:56] LABS: ABG BASE EXCESS -1.9 (-2.0-2.0); ABG HCO3 24.3 MEQ/L (22.0-26.0); ABG PARTIAL PRESSURE CO2 46.5 mmHg (35.0-45.0); ABG PARTIAL PRESSURE O2 74.3 mmHg (75.0-100.0); ABG STANDARD HCO3 22.8 MEQ/L (22.0-26.0); ABG TOTAL CO2 25.7 MEQ/L (22.0-29.0); ABG pH (ARTERIAL) 7.336 UNITS (7.350-7.450)
[2016-12-21 06:36] LABS: MEAN CORPUSCULAR HEMOGLOBIN 34.5 pg (27.0-33.0); MEAN CORPUSCULAR HGB CONC 31.8 g/dl (32.0-36.5); MEAN CORPUSCULAR VOLUME 108.8 fl (80.0-96.0); RED CELL DISTRIBUTION WIDTH 15.1 % (11.5-14.5); WHITE BLOOD COUNT 7.8 K/mm3 (4.0-10.0)
[2016-12-21 06:39] LABS: ALBUMIN 2.4 GM/DL (3.2-5.2); ALBUMIN/GLOBULIN RATIO 0.83 (1.00-1.93); ALKALINE PHOSPHATASE 205 U/L (45-117); ALT/SGPT 53 U/L (12-78); ANION GAP 12 MEQ/L (8-16); AST/SGOT 161 U/L (15-37); BILIRUBIN,TOTAL 6.1 MG/DL (0.2-1.0); BLOOD UREA NITROGEN 5 MG/DL (7-18); CALCIUM LEVEL 6.5 MG/DL (8.5-10.1); CARBON DIOXIDE LEVEL 23 MEQ/L (21-32); CHLORIDE LEVEL 107 MEQ/L (98-107); CHOLESTEROL LEVEL 110 MG/DL (<200); CREATININE FOR GFR 0.61 MG/DL (0.55-1.02); GLOMERULAR FILTRATION RATE > 60.0 (>60); GLUCOSE, FASTING 87 MG/DL (70-105); MAGNESIUM LEVEL 1.9 MG/DL (1.8-2.4); PHOSPHORUS LEVEL 1.4 MG/DL (2.5-4.9); POTASSIUM SERUM 3.4 MEQ/L (3.5-5.1); SODIUM LEVEL 142 MEQ/L (136-145); TOTAL PROTEIN 5.3 GM/DL (6.4-8.2); TRIGLYCERIDES LEVEL 162 MG/DL (<150)
[2016-12-21] MEDS: HEPARIN SOD (PORCINE) 5000 UNITS/ML VIAL SQ SCH ×3 (06:43→22:20)
[2016-12-21] MEDS: SLF 3 ML SYR IV SCH ×3 (06:43→22:21)
[2016-12-21] MEDS: NS 1,000 ML IV SCH ×4 (07:07→21:24)
[2016-12-21] MEDS: MORPHINE 2 MG/ML 1ML SYRINGE IV PRN ×3 (07:48→15:45)
[2016-12-21] MEDS: ADVAIR HFA 45/21MCG INHALER INH SCH ×2 (08:03→19:24)
[2016-12-21] MEDS: THIAMINE 100 MG TAB PO SCH (08:38)
[2016-12-21] MEDS: DULoxetine 30 MG CAP (CYMBALTA) PO SCH (08:38)
[2016-12-21] MEDS: hydroCHLOROthiazide 25 MG TAB PO SCH (08:38)
[2016-12-21] MEDS: GABAPENTIN 300 MG CAP PO SCH ×3 (08:38→20:10)
[2016-12-21] MEDS: MULTIVITAMINS/MINERALS THERAP 1 TAB PO SCH (08:38)
[2016-12-21] MEDS: CALCIUM GLUCONATE 1,000 MG in D5W MINI-BAG PLUS 100 ML IV SCH ×2 (08:39→10:18)
[2016-12-21] MEDS: FOLIC ACID 1 MG TAB PO SCH (08:39)
[2016-12-21] MEDS: NYSTATIN 100,000 UNITS/GM TOPICAL PWD 15 GM TOP SCH ×2 (08:39→20:09)
[2016-12-21] MEDS ORDERED: POTASSIUM CHLORIDE 10 MEQ SR TABLET PO SCH (09:00)
--- NOTE | 2016-12-21 09:38 | REP ---
AP PORTABLE CHEST: 12/21/2016 at 3:30 AM. Comparison: 12/20/2016 portable chest. Clinical history: CVP line placement. Findings: There is a new right subclavian central catheter with tip in the SVC. No effusion or pneumothorax. Heart size normal. Better level of inflation and decreased vascularity compared to the previous study. No mazin edema. No gross effusion on the right. Small effusion could be present on the left. Some retrocardiac left lower lobe subsegmental atelectasis and also infrahilar findings on the right. Overall much improved lung cardoza and vascularity. Signed by Mateus Chaney MD 12/21/2016 07:50 P
[2016-12-21] MEDS ORDERED: MAG SULF 1GM/100ML (MAG RUN) 1 GM in APPROPRIATE DILUENT 1 EA IV ONE ×2 (10:00→19:00)
[2016-12-21] MEDS ORDERED: KCL 20MEQ IN 100ML SWI (KRUN) 20 MEQ in APPROPRIATE DILUENT 1 EA IV SCH ×2 (11:00)
[2016-12-21] MEDS: POTASSIUM PHOSPHATE INJ 15 MMOL in D5W 250 ML IV SCH ×2 (12:23→15:44)
[2016-12-21] MEDS: ONDANSETRON 4MG/2ML VIAL (J2405) IV PRN (12:43)
[2016-12-21 13:10] LABS: IONIZED CALCIUM 4.2 MG/DL (4.5-5.3)
[2016-12-21 13:24] LABS: MEAN CORPUSCULAR HEMOGLOBIN 34.9 pg (27.0-33.0); MEAN CORPUSCULAR HGB CONC 32.4 g/dl (32.0-36.5); MEAN CORPUSCULAR VOLUME 107.7 fl (80.0-96.0); RED CELL DISTRIBUTION WIDTH 15.4 % (11.5-14.5); WHITE BLOOD COUNT 8.1 K/mm3 (4.0-10.0)
[2016-12-21] MEDS: PERCOCET 5MG/325MG TAB PO PRN (13:26)
[2016-12-21 13:38] LABS: ALBUMIN 2.6 GM/DL (3.2-5.2); ALBUMIN/GLOBULIN RATIO 0.79 (1.00-1.93); ALKALINE PHOSPHATASE 234 U/L (45-117); ALT/SGPT 55 U/L (12-78); ANION GAP 9 MEQ/L (8-16); AST/SGOT 168 U/L (15-37); BLOOD UREA NITROGEN 4 MG/DL (7-18); CALCIUM LEVEL 7.3 MG/DL (8.5-10.1); CARBON DIOXIDE LEVEL 24 MEQ/L (21-32); CHLORIDE LEVEL 105 MEQ/L (98-107); CREATININE FOR GFR 0.59 MG/DL (0.55-1.02); GLOMERULAR FILTRATION RATE > 60.0 (>60); GLUCOSE, FASTING 89 MG/DL (70-105); MAGNESIUM LEVEL 1.8 MG/DL (1.8-2.4); POTASSIUM SERUM 3.7 MEQ/L (3.5-5.1); SODIUM LEVEL 138 MEQ/L (136-145); TOTAL PROTEIN 5.9 GM/DL (6.4-8.2)
--- NOTE | 2016-12-21 13:46 | IPNPDOC ---
Text Note Date of Service The patient was seen on 12/21/16. NOTE Subjective: Patient seen and examined at bedside in ICU. She had central line placed last night by evening attending. Admits to feeling better. Denies any nausea, vomiting. Admits to feeling hungery, however still having moderate abdominal pain. Denies fever/chill, chest pain, shortness of breath. Denies any other current new complaints. Objective: Vitals: (See below) General: Patient is a morbidly obese young female laying comfortably in bed, AAOx3, NAD, with head elevated at 30 degrees HEENT: Normal cephalic atraumatic, Extraocular motion intact, pupil equal round and reactive to light, ~mucosal membrane moist, neck supple, no neck lymphadenopathy Cardio: RRR, 2/6 systolic murmur, right subclavian TLC in place Pulm: slight wheezing more on right side Abdomen: + bowel sounds, soft, diffusely moderately tender to palpation, slightly distended, no peritoneal signs, no ecchymosis, no masses that were palpable Ext: No edema, clubbing, or cynosis Skin: Warm and dry Neuro: Cranial Nerve 2 through 12 intact, No focal neurological deficit Labs ( See below) Most significantly: MCV 109, Plt 82, Cr 0.6, T bili 6.1, AST 161, albu 2.4, Lipase 998, ABG 7.33/46/74 Blood culture pending Urine culture pending Images/Procedures: 12/21/16: Portable CXR showed new right subclavian central line catheter. Small effusion on left. Some atelectasis. Assessment and Plan: 1. 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 - IVF NS 100 mlh - Pain control with percoet, morphin and fentanyl - Start CLD 2. Electrolyte abnormalities - Hypokalemia, Hypomagnesemia, hypophosphatemia, Hypocalcemia - Repleted will keep trending 3. Acute hypercarbic respiratory acidosis likely secondary to asthma vs pulmonary edema vs inflammation with history of Asthma/COPD - ABG improved - Continue BNIV as needed 4. Elevated intrabdominal pressure possibilly due to obesity vs. abdominal compartment syndrome less likely due to only small ascites from CT of abdomen and pelvis. - c/s general surgery 5. Colitis most prominent in right colon and hepatic flexure, possibily related to pancreatitis - c/s general surgery - Consider abx therapy if patient develop fever 6. DOMINGA, resolved 7. Alcohol abuse - elevated EtOH on admission - Ativan PRN for withdraw and anxiety 7. Gallbladder disease - 12/19/16 abdominal US didnt show Gallbladder wall thickening or stone, however 8. Fatty liver disease - Likely from alcoholic abuse 9. Questionable left renal disease - DOMINGA resolved with IVF - Still making urine output - CT didnt show pylonephrosis 10. Chronic low back pain - Stable, no complaints 11. Depression - On home med 12. Hypertension. - HOLD BP meds Norvasc, Lisinopril due to a concern of third spacing - Resume BP meds as needed 13. Intermittent benign positional vertigo. 14. Gastrointestinal reflux disease (GERD). - home PPI 15. History of migraine headaches. 16. Chronic back pain 17. History of dry eyes. DVT prophylaxis: Hep sc 5000 q8h Fluid, Electrolytes, Nutrition: NS 100 mlh, CLD Code: Not discussed/Full Disposition: Guarded but improved prognosis in ICU VS,Tobias, I+O VS, Darae, I+O Laboratory Tests 12/20/16 13:48 Red Blood Count 3.56 L, Mean Corpuscular Volume 109.0 H, Mean Corpuscular Hemoglobin 35.1 H, Mean Corpuscular Hemoglobin Concent 32.2, Red Cell Distribution Width 15.5 H, Neutrophils (%) (Auto) 73.4 H, Lymphocytes (%) (Auto ) 18.0 L, Monocytes (%) (Auto) 4.4, Eosinophils (%) (Auto) 2.9, Basophils (%) ( Auto) 0.5, Neutrophils # (Auto) 6.9, Lymphocytes # (Auto) 1.8, Monocytes # (Auto ) 0.4, Eosinophils # (Auto) 0.3, Basophils # (Auto) 0.0, Calcium Level 6.5 L, Aspartate Amino Transf (AST/SGOT) 183 H, Alanine Aminotransferase (ALT/SGPT) 63 , Alkaline Phosphatase 235 H, Total Bilirubin 5.3 H, Total Protein 6.3 L, Albumin 2.8 L 12/20/16 20:47 Calcium Level 7.1 L, Aspartate Amino Transf (AST/SGOT) 172 H, Alanine Aminotransferase (ALT/SGPT) 57, Alkaline Phosphatase 217 H, Total Bilirubin 5.5 H, Total Protein 6.1 L, Albumin 2.7 L 12/20/16 20:48 Red Blood Count 3.40 L, Mean Corpuscular Volume 107.8 H, Mean Corpuscular Hemoglobin 35.0 H, Mean Corpuscular Hemoglobin Concent 32.5, Red Cell Distribution Width 15.3 H, Neutrophils (%) (Auto) 71.6 H, Lymphocytes (%) (Auto ) 18.9 L, Monocytes (%) (Auto) 4.8, Eosinophils (%) (Auto) 2.8, Basophils (%) ( Auto) 0.4, Neutrophils # (Auto) 5.9, Lymphocytes # (Auto) 1.6, Monocytes # (Auto ) 0.4, Eosinophils # (Auto) 0.2, Basophils # (Auto) 0.0 12/21/16 05:41 Red Blood Count 3.11 L, Mean Corpuscular Volume 108.8 H, Mean Corpuscular Hemoglobin 34.5 H, Mean Corpuscular Hemoglobin Concent 31.8 L, Red Cell Distribution Width 15.1 H, Calcium Level 6.5 L, Aspartate Amino Transf (AST/SGOT ) 161 H, Alanine Aminotransferase (ALT/SGPT) 53, Alkaline Phosphatase 205 H, Total Bilirubin 6.1 H, Total Protein 5.3 L, Albumin 2.4 L, Phosphorus Level 1.4 L, Triglycerides Level 162 H, LDL Cholesterol 63.6 Vital Signs Date Time Temp Pulse Resp B/P (MAP) Pulse Ox O2 Delivery O2 Flow Rate FiO2 12/21/16 12:24 18 95 Nasal Cannula 3.0 12/21/16 12:00 98.4 111 143/88 (106) 12/21/16 06:00 30 I&O- Last 24 Hours up to 6 AM 12/21/16 06:00 Intake Total 5920 ml Output Total 1700 ml Balance 4220 ml GME ATTESTATION GME ATTESTATION My preceptor for this patient encounter was physically present in the building during the encounter and was fully available. As needed, all aspects of the patient interview, examination, medical decision making process, and medical care plan development were reviewed and approved by the preceptor. Preceptor is aware and concurs with the plan as stated in the body of this note and will attest to such by his/her cosignature. ATTENDING NOTE I, Markus Wilcox, have both independently examined this patient as well as reviewed the documentation. I have discussed in detail with the resident the findings and plan of treatment as documented in the residents documentation. I will continue to follow the patient and offer further guidance to the patients care as necessary during this hospital stay. MARCELL MOULTON DO Dec 21, 2016 13:46 MARKUS WILCOX MD Jan 14, 2017 18:48
[2016-12-21 14:53] LABS: INR 1.34
--- NOTE | 2016-12-21 15:45 | IPN ---
DATE: 12/20/2016 Ms. Vargas is a 31-year-old white female who was admitted with pancreatitis. She had an arterial blood gas done, which was 7.28/53/77 with a measured saturation of 94% and a base excess of -3.3. Her body habitus was strongly suggestive of obstructive sleep apnea, though that is not a known diagnosis. Dr. Jones asked me if noninvasive mechanical ventilation may be useful, as his attending does not have non-invasive mechanical ventilation (NIMV) privileges. He detailed the history. Given that she is obese, likely has obstructive sleep apnea, has pancreatitis, and will be receiving narcotics, I feel it is very appropriate that she be started on NIMV. I suggested that he start with an EPAP of 8 and an IPAP of 16. I recommend the EPAP be titrated to ensure chest rise (so that she will be able to overcome any obstruction if she does have obstructive sleep apnea), and that the IPAP be titrated to obtain a tidal volume of 350-400. I recommended arterial blood gas in 2 hours. PERI
[2016-12-21] MEDS: LORazepam 1 MG TAB PO SCH ×2 (17:38→22:24)
[2016-12-21] MEDS ORDERED: CALCIUM GLUCONATE 1,000 MG in D5W MINI-BAG PLUS 100 ML IV ONE (20:00)
[2016-12-22] VITALS (9 sets, daily range): BP systolic 106–150; BP diastolic 54–94; O2SAT 93
[2016-12-22] MEDS: PANTOPRAZOLE 40MG INJ (PROTONIX) (C9113) IV SCH (00:16)
[2016-12-22] MEDS: MORPHINE 2 MG/ML 1ML SYRINGE IV PRN ×2 (00:17→07:48)
[2016-12-22] MEDS: NS 1,000 ML IV SCH ×3 (00:18→20:45)
[2016-12-22] MEDS: IPRATROPIUM 0.5MG/ALBUTEROL 2.5MG INH SOL UD 3ML (DUONEB)(J7620) NEB SCH ×4 (01:39→20:00)
[2016-12-22] MEDS: LORazepam 1 MG TAB PO SCH ×2 (01:58→05:03)
[2016-12-22] MEDS: PERCOCET 5MG/325MG TAB PO PRN ×4 (04:25→20:49)
[2016-12-22 04:55] LABS: MEAN CORPUSCULAR HEMOGLOBIN 34.2 pg (27.0-33.0); MEAN CORPUSCULAR HGB CONC 31.4 g/dl (32.0-36.5); MEAN CORPUSCULAR VOLUME 109.1 fl (80.0-96.0); RED CELL DISTRIBUTION WIDTH 15.5 % (11.5-14.5); WHITE BLOOD COUNT 6.9 K/mm3 (4.0-10.0)
[2016-12-22] MEDS: HEPARIN SOD (PORCINE) 5000 UNITS/ML VIAL SQ SCH (05:03)
[2016-12-22] MEDS: SLF 3 ML SYR IV SCH ×3 (05:03→22:00)
[2016-12-22 05:11] LABS: ALBUMIN 2.5 GM/DL (3.2-5.2); ALBUMIN/GLOBULIN RATIO 0.78 (1.00-1.93); ALKALINE PHOSPHATASE 225 U/L (45-117); ALT/SGPT 54 U/L (12-78); ANION GAP 6 MEQ/L (8-16); AST/SGOT 147 U/L (15-37); BILIRUBIN,TOTAL 5.5 MG/DL (0.2-1.0); BLOOD UREA NITROGEN 3 MG/DL (7-18); CALCIUM LEVEL 7.3 MG/DL (8.5-10.1); CARBON DIOXIDE LEVEL 28 MEQ/L (21-32); CHLORIDE LEVEL 103 MEQ/L (98-107); CREATININE FOR GFR 0.54 MG/DL (0.55-1.02); GLOMERULAR FILTRATION RATE > 60.0 (>60); GLUCOSE, FASTING 100 MG/DL (70-105); MAGNESIUM LEVEL 1.7 MG/DL (1.8-2.4); POTASSIUM SERUM 3.6 MEQ/L (3.5-5.1); SODIUM LEVEL 137 MEQ/L (136-145); TOTAL PROTEIN 5.7 GM/DL (6.4-8.2)
--- NOTE | 2016-12-22 06:50 | CR ---
DATE OF CONSULTATION: 12/20/2016 REASON FOR CONSULTATION: Abdominal distention, question abdominal compartment syndrome in the midst of pancreatitis given decreased urine output. HISTORY OF PRESENT ILLNESS: The patient is a 31-year-old female who presents with a history of alcohol abuse and alcoholic pancreatitis in the past who had 24 hours of fevers, chills, nausea, vomiting, epigastric pain and presents with some loose stools and presents with severe pancreatitis on CAT scan. She was having increasing abdominal pain with decreasing urine output and thus some abdominal compartment pressures were attempted with Ricardo catheter; however, discussing this with the nurse there were some difficulty in obtaining accurate measurements because of the patient complaints of abdominal pain and BiPap in place, etc. In any case, her pressure seemed to be increasing and I was asked to see her for possible compartment syndrome. PAST MEDICAL HISTORY: Significant for history of recurrent pancreatitis secondary to alcohol, history of alcohol abuse, history of chronic back pain, history of depression, history of hypertension, history of vertigo, history of gastroesophageal (GE) reflux, history of asthma and chronic obstructive pulmonary disease (COPD), history of migraine headaches, history of dry eyes. MEDICATIONS: Include amlodipine, Flexeril, Cymbalta, Neurontin, hydrochlorothiazide, lisinopril, meclizine, omeprazole, multivitamin, Advair Diskus, sumatriptan and eye drops. PHYSICAL EXAMINATION: Reveals a morbidly obese female who looks stated age. HEENT is unremarkable. Atraumatic, normocephalic; however, she does have scleral icterus. Neck: Supple without adenopathy. Lungs are rhonchorous bilaterally with a few crackles at the bases posteriorly, diminished definitely posteriorly. Heart is regular. Abdomen is obese, distended. She does have some mild lower abdominal discomfort, but no peritoneal signs. It is soft on all of her lower abdomen. She does have some tenderness and guarding in the epigastric area consistent with her pancreatitis. Her hematocrit has decreased slightly from 14 down to 13, but not significant hemorrhagic looking appearance. Her lipase went up from 3700 to 7500. Her liver function tests (LFTs) are significantly elevated with bilirubin, AST and alkaline phosphatase. Otherwise, imaging studies were reviewed and specifically on her CAT scan she has no evidence of cholecystitis. She has no evidence of gallstones or gallbladder sludge. She has evidence of a significant amount of peripancreatic inflammation consistent with pancreatitis. She has also a very large liver. She has some ascites bilaterally and she has some thickening of her right colon, hepatic flexure and proximal transverse colon. IMPRESSION AND PLAN: The patient issues are as follows. 1. Decreased urine output secondary to dehydration and third spacing. I agree with increasing her IV fluids as you have. Once the Ricardo was placed, she has been having 75 mL urine output an hour and that is with her IV rate at 350. I will drop the IV rate back to 250 and I anticipate later on today we may be able to drop it back further. I would like to avoid excessive fluid resuscitation with her given that she will third space a lot of this and will get increased abdominal pressure and possibly significant pleural effusions as is typical with this severe of pancreatitis, etc. 2. Abdominal compartment syndrome is not present on clinical exam whatsoever. She has a soft lower abdomen and definitely no peritoneal signs and it is not tight whatsoever. I feel that the pressures are most likely falsely elevated given her morbid obesity, her pain and discomfort that causes her to wince and increase her intra-abdominal pressure at times and also her respiratory issues and her current use of BiPap. Thus, at this point, I would keep her nothing by mouth (n.p.o.) and continue your supportive care as you have and will follow up with a reevaluation in the morning and depending on this we may be able to cut back her IV fluids as well as possibly increase her diet, but I would be very slow with progressing her diet until all of her pain has resolved and her liver function tests as well as pancreatic numbers have returned closer to normal than they are at this point. From a gallbladder standpoint, it does not appear to be gallbladder associated. The gallbladder is distended. I anticipate given the inflammatory process more distal in the common bile duct, i.e. pancreatitis, as is most likely the reason for the liver. Some of the liver function tests may be from a chemical associated hepatitis associated with the alcohol abuse, although this may need to be evaluated further. If the liver function tests do not seem to resolve completely, I would recommend a GI evaluation.
[2016-12-22] MEDS ORDERED: MAG SULF 1GM/100ML (MAG RUN) 1 GM in APPROPRIATE DILUENT 1 EA IV ONE (08:00)
[2016-12-22 08:13] LABS: PHOSPHORUS LEVEL 1.7 MG/DL (2.5-4.9)
[2016-12-22] MEDS: ADVAIR HFA 45/21MCG INHALER INH SCH ×2 (08:35→19:49)
[2016-12-22] MEDS ORDERED: CALCIUM GLUCONATE 1,000 MG in D5W MINI-BAG PLUS 100 ML IV ONE (09:00)
[2016-12-22] MEDS: THIAMINE 100 MG TAB PO SCH (09:07)
[2016-12-22] MEDS: MULTIVITAMINS/MINERALS THERAP 1 TAB PO SCH (09:07)
[2016-12-22] MEDS: FOLIC ACID 1 MG TAB PO SCH (09:07)
[2016-12-22] MEDS: DULoxetine 30 MG CAP (CYMBALTA) PO SCH (09:07)
[2016-12-22] MEDS: GABAPENTIN 300 MG CAP PO SCH ×3 (09:08→20:45)
[2016-12-22] MEDS: hydroCHLOROthiazide 25 MG TAB PO SCH (09:08)
[2016-12-22] MEDS: NYSTATIN 100,000 UNITS/GM TOPICAL PWD 15 GM TOP SCH ×2 (09:10→20:45)
[2016-12-22] MEDS ORDERED: SODIUM PHOSPHATE INJ 30 MMOL in D5W 500 ML IV ONE (11:00)
[2016-12-22] MEDS ORDERED: LORazepam 1 MG TAB PO SCH ×2 (12:00→20:00)
--- NOTE | 2016-12-22 13:00 | IPNPDOC ---
Text Note Date of Service The patient was seen on 12/22/16. NOTE Subjective: Patient is a 31 year old female with a PMHx of HTN, DLP, COPD, Migraine Headaches, Alcohol Abuse, Hx of Pancreatitis 2/2 alcohol and Chronic lower back pain who presented to the ER with complaints of abdominal pain, subjective fevers and chills. She was found to have an elevated lipase and was admitted for acute pancreatitis. She was also noted to have consumed several shots of vodka daily. Patient was seen and examined at the bedside. She notes that her abdominal pain is still there but resolving. She denies any nausea or vomiting. She has been tolerating her clear liquid diet. Objective: Vitals (See below) General: Lying in bed, no acute distress, comfortable, AAOx3 HEENT: NC, AT CVS: RRR, +S1S2 Lungs: Fair air entry b/l, -w/r/r Abdomen: Soft, ND, Mild tenderness at epigastrium, +BSx4 Extremities: - Edema, - Calf tenderness Assessment and plan: 1. Acute pancreatitis - likely 2/2 alcohol - Presented with abdominal pain, nausea and vomiting - History of recurrent pancreatitis of similar etiology in past - Elevated lipase has been trending down - CT scan 12/20: peripancreatic inflammatory changes consistent with acute pancreatitis, no pseudocyst / abscess / necrotizing - IV fluids have been reduced - c/w Symptomatic relief with Zofran and Percocet; s/p Fentanyl patch and morphine - Clear liquid diet will be advanced to full; will continue to advance as tolerated 2. Multiple electrolyte abnormalities - will continue with supplementation 3. s/p Hypercarbic respiratory acidosis - likely 2/2 COPD / Hypoventilation 2/2 medications and pain - s/p BIPAP prn 4. Pseudo-elevation in intra-abdominal pressures - likely 2/2 body habitus, pain and BIPAP - s/p measurements 5. s/p DOMINGA 6. Alcohol abuse - Elevated alcohol level on admission - Will titrate down on Ativan - c/w Folate, Thiamine and MVI 8. Fatty liver - likely 2/2 alcohol abuse 9. Chronic lower back pain - c/w Pain control 10. Depression - c/w Duloxetine 11. HTN - BP moderately controlled - Will restart Amlodipine 5 today; will restart Lisinopril 20 tomorrow 12. Migraine headaches 13. GERD - c/w Protonix; will switch to PO 14. DVT prophylaxis - c/w SCDs - Will discontinue Heparin VS,Fishbone, I+O VS, Fishbone, I+O Laboratory Tests 12/21/16 12:46 Red Blood Count 3.22 L, Mean Corpuscular Volume 107.7 H, Mean Corpuscular Hemoglobin 34.9 H, Mean Corpuscular Hemoglobin Concent 32.4, Red Cell Distribution Width 15.4 H, Calcium Level 7.3 L, Aspartate Amino Transf (AST/SGOT ) 168 H, Alanine Aminotransferase (ALT/SGPT) 55, Alkaline Phosphatase 234 H, Total Bilirubin 6.0 H, Total Protein 5.9 L, Albumin 2.6 L 12/22/16 04:18 Red Blood Count 3.07 L, Mean Corpuscular Volume 109.1 H, Mean Corpuscular Hemoglobin 34.2 H, Mean Corpuscular Hemoglobin Concent 31.4 L, Red Cell Distribution Width 15.5 H, Calcium Level 7.3 L, Aspartate Amino Transf (AST/SGOT ) 147 H, Alanine Aminotransferase (ALT/SGPT) 54, Alkaline Phosphatase 225 H, Total Bilirubin 5.5 H, Total Protein 5.7 L, Albumin 2.5 L, Phosphorus Level 1.7 #L Vital Signs Date Time Temp Pulse Resp B/P (MAP) Pulse Ox O2 Delivery O2 Flow Rate FiO2 12/22/16 12:13 25 95 Nasal Cannula 2.0 12/22/16 08:35 104 12/22/16 08:00 97.3 150/92 (111) 12/21/16 06:00 30 I&O- Last 24 Hours up to 6 AM 12/22/16 06:00 Intake Total 4570 ml Output Total 1680 ml Balance 2890 ml JANELL WILCOX MD Dec 22, 2016 13:00
[2016-12-22] MEDS: amLODIPine 5 MG TAB PO SCH (14:17)
[2016-12-22] MEDS: ONDANSETRON 4MG/2ML VIAL (J2405) IV PRN (15:51)
--- NOTE | 2016-12-22 21:21 | RO ---
DATE OF CONSULTATION: 12/21/2016 PROCEDURE: Right subclavian triple-lumen central line placement. INDICATION: Hemodynamic monitoring and IV access PROCEDURE PERFORMED BY. Khanh Marie DO PROCEDURE NOTE: A time-out was completed, verified with correct patient, procedure site, positioning and equipment. The patient was placed in a dependent position, appropriate for central line placement with the vein to be cannulated. The right subclavian was prepped and draped in a sterile fashion. 1% lidocaine was used to anesthetize the surrounding skin area. The patient was then placed in Trendelenburg. A triple-lumen catheter was introduced into the right subclavian vein using Seldinger technique. Catheter was threaded smoothly over guidewire and appropriate blood return was obtained Each lumen of the catheter was evacuated of air and flushed with sterile saline. The catheter was then sutured into place to the skin and sterile dressing applied. Perfusion to the extremity distal to the point of the catheter insertion was checked and found to be adequate and I attended the entire procedure. Estimated blood loss was less than 15 mL. The patient tolerated procedure well. Chest x-ray did confirm good placement of the tip of the catheter just above the right atrium and it was sutured in place at 15 mm. No issues on chest x-ray otherwise. There was no visible pneumothorax. However, the patient did have some issues with some bleeding underneath the dressing site. Will put a new dressing in place and will put pressure on the dressing, likely use of sandbags and reevaluate in the next 15 to 20 minutes. PERI
[2016-12-23] VITALS (10 sets, daily range): BP systolic 113–146; BP diastolic 63–93
[2016-12-23] MEDS: PERCOCET 5MG/325MG TAB PO PRN ×4 (01:04→19:36)
[2016-12-23] MEDS: IPRATROPIUM 0.5MG/ALBUTEROL 2.5MG INH SOL UD 3ML (DUONEB)(J7620) NEB SCH ×4 (01:25→20:00)
[2016-12-23] MEDS: LORazepam 2 MG/ML VIAL (J2060) IV PRN (03:37)
[2016-12-23] MEDS: SLF 3 ML SYR IV SCH ×3 (05:54→21:47)
[2016-12-23] MEDS: NS 1,000 ML IV SCH (05:54)
[2016-12-23 06:00] LABS: MEAN CORPUSCULAR HEMOGLOBIN 35.5 pg (27.0-33.0); MEAN CORPUSCULAR HGB CONC 32.5 g/dl (32.0-36.5); MEAN CORPUSCULAR VOLUME 109.4 fl (80.0-96.0); RED CELL DISTRIBUTION WIDTH 15.5 % (11.5-14.5); WHITE BLOOD COUNT 4.5 K/mm3 (4.0-10.0)
[2016-12-23 06:25] LABS: ALBUMIN 2.5 GM/DL (3.2-5.2); ALBUMIN/GLOBULIN RATIO 0.83 (1.00-1.93); ALKALINE PHOSPHATASE 224 U/L (45-117); ALT/SGPT 50 U/L (12-78); ANION GAP 10 MEQ/L (8-16); AST/SGOT 126 U/L (15-37); BILIRUBIN,TOTAL 4.6 MG/DL (0.2-1.0); BLOOD UREA NITROGEN < 1 MG/DL (7-18); CALCIUM LEVEL 7.4 MG/DL (8.5-10.1); CARBON DIOXIDE LEVEL 28 MEQ/L (21-32); CHLORIDE LEVEL 103 MEQ/L (98-107); CREATININE FOR GFR 0.41 MG/DL (0.55-1.02); GLOMERULAR FILTRATION RATE > 60.0 (>60); GLUCOSE, FASTING 89 MG/DL (70-105); MAGNESIUM LEVEL 1.7 MG/DL (1.8-2.4); POTASSIUM SERUM 3.2 MEQ/L (3.5-5.1); SODIUM LEVEL 141 MEQ/L (136-145); TOTAL PROTEIN 5.5 GM/DL (6.4-8.2)
[2016-12-23] MEDS ORDERED: CALCIUM GLUCONATE 1,000 MG in D5W MINI-BAG PLUS 100 ML IV ONE (07:15)
[2016-12-23] MEDS: KCL 20MEQ IN 100ML SWI (KRUN) 20 MEQ in APPROPRIATE DILUENT 1 EA IV SCH ×4 (07:47→09:18)
[2016-12-23] MEDS: MAG SULF 1GM/100ML (MAG RUN) 1 GM in APPROPRIATE DILUENT 1 EA IV SCH ×2 (07:48→09:18)
[2016-12-23 07:57] LABS: PHOSPHORUS LEVEL 1.9 MG/DL (2.5-4.9)
[2016-12-23] MEDS: GABAPENTIN 300 MG CAP PO SCH ×3 (08:15→21:46)
[2016-12-23] MEDS: DULoxetine 30 MG CAP (CYMBALTA) PO SCH (08:15)
[2016-12-23] MEDS: MULTIVITAMINS/MINERALS THERAP 1 TAB PO SCH (08:15)
[2016-12-23] MEDS: PANTOPRAZOLE 40MG TAB (PROTONIX) PO SCH (08:15)
[2016-12-23] MEDS: hydroCHLOROthiazide 25 MG TAB PO SCH (08:16)
[2016-12-23] MEDS: FOLIC ACID 1 MG TAB PO SCH (08:16)
[2016-12-23] MEDS: THIAMINE 100 MG TAB PO SCH (08:16)
[2016-12-23] MEDS: amLODIPine 5 MG TAB PO SCH (08:16)
[2016-12-23] MEDS: NYSTATIN 100,000 UNITS/GM TOPICAL PWD 15 GM TOP SCH ×2 (08:17→21:00)
[2016-12-23] MEDS ORDERED: LORazepam 1 MG TAB PO PRN (08:30)
[2016-12-23] MEDS: ADVAIR HFA 45/21MCG INHALER INH SCH ×2 (08:48→21:00)
[2016-12-23] MEDS: NEUTRA-PHOS 1.25 GM PACKET PO SCH ×3 (09:18→21:46)
--- NOTE | 2016-12-23 13:19 | IPNPDOC ---
Text Note Date of Service The patient was seen on 12/23/16. NOTE Subjective: Patient is a 31 year old female with a PMHx of HTN, DLP, COPD, Migraine Headaches, Alcohol Abuse, Hx of Pancreatitis 2/2 alcohol and Chronic lower back pain who presented to the ER with complaints of abdominal pain, subjective fevers and chills. She was found to have an elevated lipase and was admitted for acute pancreatitis. She was also noted to have consumed several shots of vodka daily. Patient was seen and examined at the bedside. No longer reports significant abdominal pain. No nausea or vomiting. Has been tolerating oral feeds. No diarrhea or constipation noted. Objective: Vitals (See below) General: Lying in bed, no acute distress, comfortable, AAOx3 HEENT: NC, AT CVS: RRR, +S1S2 Lungs: Fair air entry b/l, -w/r/r Abdomen: Soft, ND, no appreciable tenderness, +BSx4 Extremities: - Edema, - Calf tenderness Assessment and plan: 1. Acute pancreatitis - likely 2/2 alcohol abuse - Clinically has improvement in abdominal pain, no nausea / vomiting - History of recurrent pancreatitis of similar etiology in past - Elevated lipase has been trending down - CT scan 12/20: peripancreatic inflammatory changes consistent with acute pancreatitis, no pseudocyst / abscess / necrotizing - s/p IV fluids - s/p Fentanyl patch and morphine - Diet fully advanced - c/w Symptomatic relief with Zofran and Percocet (will reduce frequency) 2. Multiple electrolyte abnormalities - will continue with supplementation 3. s/p Hypercarbic respiratory acidosis - likely 2/2 COPD / Hypoventilation 2/2 medications and pain - s/p BIPAP prn 4. Pseudo-elevation in intra-abdominal pressures - likely 2/2 body habitus, pain and BIPAP - s/p measurements 5. s/p DOMINGA 6. Alcohol abuse - Elevated alcohol level on admission - Advised patient to abstain from all alcohol use - Will reduce frequency of Ativan and change to PO - c/w Folate, Thiamine and MVI 8. Fatty liver - likely 2/2 alcohol abuse 9. Chronic lower back pain - c/w Pain control 10. Depression - c/w Duloxetine 11. HTN - BP moderately controlled - Lisinopril 20 still on hold (BP controlled without it) - c/w Amlodipine 5 12. Migraine headaches 13. GERD - c/w Protonix; will switch to PO 14. DVT prophylaxis - c/w SCDs; s/p Heparin Disposition: - Will downgrade to medical surgical floor - Will supplement electrolytes - Will start physical therapy VS,Fishbone, I+O VS, Fishbone, I+O Laboratory Tests 12/23/16 05:48 Red Blood Count 3.00 L, Mean Corpuscular Volume 109.4 H, Mean Corpuscular Hemoglobin 35.5 H, Mean Corpuscular Hemoglobin Concent 32.5, Red Cell Distribution Width 15.5 H, Calcium Level 7.4 L, Phosphorus Level 1.9 L, Aspartate Amino Transf (AST/SGOT) 126 H, Alanine Aminotransferase (ALT/SGPT) 50 , Alkaline Phosphatase 224 H, Total Bilirubin 4.6 H, Total Protein 5.5 L, Albumin 2.5 L Vital Signs Date Time Temp Pulse Resp B/P (MAP) Pulse Ox O2 Delivery O2 Flow Rate FiO2 12/23/16 12:00 Nasal Cannula 1.0 12/23/16 12:00 97 121/79 12/23/16 12:00 97.6 18 92 12/21/16 06:00 30 I&O- Last 24 Hours up to 6 AM 12/23/16 06:00 Intake Total 2650 ml Output Total 3350 ml Balance -700 ml JANELL WILCOX MD Dec 23, 2016 13:19
[2016-12-23 13:52] LABS: ANION GAP 6 MEQ/L (8-16); BLOOD UREA NITROGEN 1 MG/DL (7-18); CALCIUM LEVEL 8.2 MG/DL (8.5-10.1); CARBON DIOXIDE LEVEL 30 MEQ/L (21-32); CHLORIDE LEVEL 102 MEQ/L (98-107); CREATININE FOR GFR 0.49 MG/DL (0.55-1.02); GLOMERULAR FILTRATION RATE > 60.0 (>60); GLUCOSE, FASTING 108 MG/DL (70-105); POTASSIUM SERUM 3.7 MEQ/L (3.5-5.1); SODIUM LEVEL 138 MEQ/L (136-145)
[2016-12-24] VITALS (9 sets, daily range): BP systolic 112–150; BP diastolic 72–91
[2016-12-24] MEDS ORDERED: LORazepam 1 MG TAB As Ordered ONE (00:39)
[2016-12-24] MEDS: LORazepam 1 MG TAB PO PRN ×2 (00:49→20:11)
[2016-12-24] MEDS: IPRATROPIUM 0.5MG/ALBUTEROL 2.5MG INH SOL UD 3ML (DUONEB)(J7620) NEB SCH ×3 (02:00→21:17)
[2016-12-24 05:09] LABS: MEAN CORPUSCULAR HEMOGLOBIN 34.8 pg (27.0-33.0); MEAN CORPUSCULAR HGB CONC 31.8 g/dl (32.0-36.5); MEAN CORPUSCULAR VOLUME 109.5 fl (80.0-96.0); RED CELL DISTRIBUTION WIDTH 16.1 % (11.5-14.5); WHITE BLOOD COUNT 5.3 K/mm3 (4.0-10.0)
[2016-12-24 05:15] LABS: ALBUMIN 2.4 GM/DL (3.2-5.2); ALBUMIN/GLOBULIN RATIO 0.77 (1.00-1.93); ALKALINE PHOSPHATASE 224 U/L (45-117); ALT/SGPT 48 U/L (12-78); ANION GAP 9 MEQ/L (8-16); AST/SGOT 113 U/L (15-37); BILIRUBIN,TOTAL 3.8 MG/DL (0.2-1.0); BLOOD UREA NITROGEN 1 MG/DL (7-18); CALCIUM LEVEL 7.9 MG/DL (8.5-10.1); CARBON DIOXIDE LEVEL 30 MEQ/L (21-32); CHLORIDE LEVEL 101 MEQ/L (98-107); CREATININE FOR GFR 0.43 MG/DL (0.55-1.02); GLOMERULAR FILTRATION RATE > 60.0 (>60); GLUCOSE, FASTING 97 MG/DL (70-105); MAGNESIUM LEVEL 1.6 MG/DL (1.8-2.4); POTASSIUM SERUM 3.4 MEQ/L (3.5-5.1); SODIUM LEVEL 140 MEQ/L (136-145); TOTAL PROTEIN 5.5 GM/DL (6.4-8.2)
[2016-12-24] MEDS: SLF 3 ML SYR IV SCH ×3 (05:25→20:12)
[2016-12-24] MEDS: ADVAIR HFA 45/21MCG INHALER INH SCH ×3 (07:49→21:17)
[2016-12-24] MEDS: NEUTRA-PHOS 1.25 GM PACKET PO SCH ×3 (08:55→20:11)
[2016-12-24] MEDS: THIAMINE 100 MG TAB PO SCH (08:56)
[2016-12-24] MEDS: PANTOPRAZOLE 40MG TAB (PROTONIX) PO SCH (08:57)
[2016-12-24] MEDS: MULTIVITAMINS/MINERALS THERAP 1 TAB PO SCH (08:57)
[2016-12-24] MEDS: hydroCHLOROthiazide 25 MG TAB PO SCH (08:57)
[2016-12-24] MEDS: DULoxetine 30 MG CAP (CYMBALTA) PO SCH (08:57)
[2016-12-24] MEDS: FOLIC ACID 1 MG TAB PO SCH (08:57)
[2016-12-24] MEDS: GABAPENTIN 300 MG CAP PO SCH ×3 (08:59→20:11)
[2016-12-24] MEDS: amLODIPine 5 MG TAB PO SCH (09:00)
--- NOTE | 2016-12-24 09:13 | IPNPDOC ---
Text Note Date of Service The patient was seen on 12/24/16. NOTE Subjective: Patient is a 31 year old female with a PMHx of HTN, DLP, COPD, Migraine Headaches, Alcohol Abuse, Hx of Pancreatitis 2/2 alcohol and Chronic lower back pain who presented to the ER with complaints of abdominal pain, subjective fevers and chills. She was found to have an elevated lipase and was admitted for acute pancreatitis. She was also noted to have consumed several shots of vodka daily. Patient was seen and examined at the bedside. Sleeping on my arrival. On wakening, she complains of abdominal pain today. Objective: Vitals (See below) General: Lying in bed, no acute distress, comfortable, AAOx3 HEENT: NC, AT CVS: RRR, +S1S2 Lungs: Fair air entry b/l, -w/r/r Abdomen: Soft, ND, morbidly obese, LLQ tenderness, +BSx4 Extremities: - Edema, - Calf tenderness Assessment and plan: 1. Acute pancreatitis - likely 2/2 alcohol abuse - abdominal pain worse from yesterday, no nausea / vomiting - History of recurrent pancreatitis of similar etiology in past - Elevated lipase has been trending down - repeat lipase pending - CT scan 12/20: peripancreatic inflammatory changes consistent with acute pancreatitis, no pseudocyst / abscess / necrotizing - s/p IV fluids - s/p Fentanyl patch and morphine - diet changed to clear liquids - c/w Symptomatic relief with Zofran and Percocet 2. Multiple electrolyte abnormalities - continue to replete and follow 3. s/p Hypercarbic respiratory acidosis - likely 2/2 COPD / Hypoventilation 2/2 medications and pain - s/p BIPAP prn 4. Pseudo-elevation in intra-abdominal pressures - likely 2/2 body habitus, pain and BIPAP - s/p measurements 5. s/p DOMINGA 6. Alcohol abuse - Elevated alcohol level on admission - Advised patient to abstain from all alcohol use - continue ativan orotocol - c/w Folate, Thiamine and MVI 8. Fatty liver - likely 2/2 alcohol abuse 9. Chronic lower back pain - c/w Pain control 10. Depression - c/w Duloxetine 11. HTN - BP moderately controlled - Lisinopril 20 still on hold (BP controlled without it) - c/w Amlodipine 5 12. Migraine headaches 13. GERD - c/w Protonix; will switch to PO 14. DVT prophylaxis - c/w SCDs; s/p Heparin Disposition: - diet changed to clears - Will supplement electrolytes - pending physical therapy VS,Fishbone, I+O VS, Fishbone, I+O Laboratory Tests 12/23/16 12:55 Calcium Level 8.2 L 12/24/16 04:37 Calcium Level 7.9 L, Red Blood Count 2.99 L, Mean Corpuscular Volume 109.5 H, Mean Corpuscular Hemoglobin 34.8 H, Mean Corpuscular Hemoglobin Concent 31.8 L, Red Cell Distribution Width 16.1 H, Aspartate Amino Transf (AST/SGOT) 113 H, Alanine Aminotransferase (ALT/SGPT) 48, Alkaline Phosphatase 224 H, Total Bilirubin 3.8 H, Total Protein 5.5 L, Albumin 2.4 L Vital Signs Date Time Temp Pulse Resp B/P (MAP) Pulse Ox O2 Delivery O2 Flow Rate FiO2 12/24/16 09:00 104 125/75 12/24/16 07:15 97.9 18 92 Room Air 12/23/16 12:00 1.0 12/21/16 06:00 30 I&O- Last 24 Hours up to 6 AM 12/24/16 05:59 Intake Total 1225 ml Output Total 1502 ml Balance -277 ml ALEC VAZQUEZ MD Dec 24, 2016 09:13
[2016-12-24] MEDS ORDERED: POTASSIUM CHLORIDE 10 MEQ SR TABLET PO ONE (10:00)
[2016-12-24] MEDS ORDERED: MAG SULF 1GM/100ML (MAG RUN) 1 GM in APPROPRIATE DILUENT 1 EA IV ONE (10:00)
[2016-12-24] MEDS: PERCOCET 5MG/325MG TAB PO PRN ×2 (11:54→18:04)
[2016-12-24] MEDS: NYSTATIN 100,000 UNITS/GM TOPICAL PWD 15 GM TOP SCH ×2 (11:56→20:12)
[2016-12-25] VITALS (8 sets, daily range): BP systolic 114–130; BP diastolic 57–86
[2016-12-25] MEDS: PERCOCET 5MG/325MG TAB PO PRN ×4 (00:05→19:57)
[2016-12-25] MEDS: IPRATROPIUM 0.5MG/ALBUTEROL 2.5MG INH SOL UD 3ML (DUONEB)(J7620) NEB SCH ×4 (02:00→20:00)
[2016-12-25 05:53] LABS: IONIZED CALCIUM 4.3 MG/DL (4.5-5.3)
[2016-12-25 05:56] LABS: MEAN CORPUSCULAR HEMOGLOBIN 35.4 pg (27.0-33.0); MEAN CORPUSCULAR HGB CONC 32.4 g/dl (32.0-36.5); MEAN CORPUSCULAR VOLUME 109.1 fl (80.0-96.0); RED CELL DISTRIBUTION WIDTH 16.3 % (11.5-14.5); WHITE BLOOD COUNT 4.6 K/mm3 (4.0-10.0)
[2016-12-25] MEDS: SLF 3 ML SYR IV SCH (06:00)
[2016-12-25 06:09] LABS: MAGNESIUM LEVEL 1.7 MG/DL (1.8-2.4)
[2016-12-25] MEDS ORDERED: SODIUM CHLORIDE 0.9% INJ 10 ML SYR IV PRN (06:15)
[2016-12-25 06:17] LABS: ALBUMIN 2.4 GM/DL (3.2-5.2); ALBUMIN/GLOBULIN RATIO 0.65 (1.00-1.93); ALKALINE PHOSPHATASE 216 U/L (45-117); ALT/SGPT 44 U/L (12-78); ANION GAP 8 MEQ/L (8-16); AST/SGOT 104 U/L (15-37); BLOOD UREA NITROGEN < 1 MG/DL (7-18); CALCIUM LEVEL 8.3 MG/DL (8.5-10.1); CARBON DIOXIDE LEVEL 32 MEQ/L (21-32); CHLORIDE LEVEL 101 MEQ/L (98-107); CREATININE FOR GFR 0.41 MG/DL (0.55-1.02); GLOMERULAR FILTRATION RATE > 60.0 (>60); GLUCOSE, FASTING 88 MG/DL (70-105); POTASSIUM SERUM 3.1 MEQ/L (3.5-5.1); SODIUM LEVEL 141 MEQ/L (136-145); TOTAL PROTEIN 6.1 GM/DL (6.4-8.2)
[2016-12-25] MEDS: SODIUM CHLORIDE 0.9% INJ 10 ML SYR IV SCH ×3 (06:26→21:06)
[2016-12-25] MEDS: ADVAIR HFA 45/21MCG INHALER INH SCH ×2 (08:32→19:48)
[2016-12-25] MEDS ORDERED: POTASSIUM CHLORIDE 10 MEQ SR TABLET PO ONE (09:00)
[2016-12-25] MEDS: PANTOPRAZOLE 40MG TAB (PROTONIX) PO SCH (09:31)
[2016-12-25] MEDS: hydroCHLOROthiazide 25 MG TAB PO SCH (09:31)
[2016-12-25] MEDS: MULTIVITAMINS/MINERALS THERAP 1 TAB PO SCH (09:31)
[2016-12-25] MEDS: NEUTRA-PHOS 1.25 GM PACKET PO SCH ×3 (09:32→21:05)
[2016-12-25] MEDS: THIAMINE 100 MG TAB PO SCH (09:32)
[2016-12-25] MEDS: FOLIC ACID 1 MG TAB PO SCH (09:32)
[2016-12-25] MEDS: DULoxetine 30 MG CAP (CYMBALTA) PO SCH (09:32)
[2016-12-25] MEDS: GABAPENTIN 300 MG CAP PO SCH ×3 (09:32→21:06)
[2016-12-25] MEDS: amLODIPine 5 MG TAB PO SCH (09:32)
[2016-12-25] MEDS: MAG SULF 1GM/100ML (MAG RUN) 1 GM in APPROPRIATE DILUENT 1 EA IV SCH ×2 (09:33→11:59)
[2016-12-25] MEDS: NYSTATIN 100,000 UNITS/GM TOPICAL PWD 15 GM TOP SCH ×2 (09:33→21:06)
[2016-12-25 10:56] LABS: PHOSPHORUS LEVEL 2.6 MG/DL (2.5-4.9)
--- NOTE | 2016-12-25 11:51 | IPNPDOC ---
Text Note Date of Service The patient was seen on 12/25/16. NOTE Subjective: Patient is a 31 year old female with a PMHx of HTN, DLP, COPD, Migraine Headaches, Alcohol Abuse, Hx of Pancreatitis 2/2 alcohol and Chronic lower back pain who presented to the ER with complaints of abdominal pain, subjective fevers and chills. She was found to have an elevated lipase and was admitted for acute pancreatitis. She was also noted to have consumed several shots of vodka daily. Patient was seen and examined at the bedside. Sleeping on my arrival. On wakening, she complained of abdominal pain and leg pain. Objective: Vitals (See below) General: Lying in bed, no acute distress, comfortable, AAOx3 HEENT: NC, AT CVS: RRR, +S1S2 Lungs: Fair air entry b/l, -w/r/r Abdomen: Soft, ND, morbidly obese, LLQ tenderness, +BSx4 Extremities: - Edema, - Calf tenderness Assessment and plan: 1. Acute pancreatitis - likely 2/2 alcohol abuse - still complains of some abdominal pain, no changes from yesterday, also states some nausea, no vomiting - History of recurrent pancreatitis of similar etiology in past - Elevated lipase - CT scan 12/20: peripancreatic inflammatory changes consistent with acute pancreatitis, no pseudocyst / abscess / necrotizing - s/p IV fluids - s/p Fentanyl patch and morphine - c/w Symptomatic relief with Zofran and Percocet - likely make NPO with IV fluids 2. Multiple electrolyte abnormalities - continue to replete and follow 3. s/p Hypercarbic respiratory acidosis - likely 2/2 COPD / Hypoventilation 2/2 medications and pain - s/p BIPAP prn 4. Pseudo-elevation in intra-abdominal pressures - likely 2/2 body habitus, pain and BIPAP - s/p measurements 5. s/p DOMINGA 6. Alcohol abuse - Elevated alcohol level on admission - Advised patient to abstain from all alcohol use - continue ativan orotocol - c/w Folate, Thiamine and MVI 8. Fatty liver - likely 2/2 alcohol abuse 9. Chronic lower back pain - c/w Pain control 10. Depression - c/w Duloxetine 11. HTN - BP moderately controlled - Lisinopril 20 still on hold (BP controlled without it) - c/w Amlodipine 5 12. Migraine headaches 13. GERD - c/w Protonix; will switch to PO 14. DVT prophylaxis - c/w SCDs; s/p Heparin Disposition: - likely transition to NPO with IV fluids - Will replete electrolytes - requires continued physical therapy VS,Fishbone, I+O VS, Fishbone, I+O Laboratory Tests 12/25/16 05:39 Red Blood Count 2.90 L, Mean Corpuscular Volume 109.1 H, Mean Corpuscular Hemoglobin 35.4 H, Mean Corpuscular Hemoglobin Concent 32.4, Red Cell Distribution Width 16.3 H, Calcium Level 8.3 L, Aspartate Amino Transf (AST/SGOT ) 104 H, Alanine Aminotransferase (ALT/SGPT) 44, Alkaline Phosphatase 216 H, Total Bilirubin 3.0 H, Total Protein 6.1 L, Albumin 2.4 L Vital Signs Date Time Temp Pulse Resp B/P (MAP) Pulse Ox O2 Delivery O2 Flow Rate FiO2 12/25/16 06:57 18 12/25/16 06:00 97.9 93 128/80 (96) 93 Room Air 12/23/16 12:00 1.0 12/21/16 06:00 30 I&O- Last 24 Hours up to 6 AM 12/25/16 06:00 Intake Total 3180 ml Output Total 2150 ml Balance 1030 ml ALEC VAZQUEZ MD Dec 25, 2016 11:51
[2016-12-25] MEDS: ONDANSETRON 4MG/2ML VIAL (J2405) IV PRN (11:59)
[2016-12-25] MEDS ORDERED: LACTATED RINGER'S 1000 ML IV ONE (12:00)
[2016-12-25] MEDS: LR 1,000 ML IV SCH (13:24)
[2016-12-25] MEDS: LORazepam 1 MG TAB PO PRN (17:49)
[2016-12-26] MEDS: IPRATROPIUM 0.5MG/ALBUTEROL 2.5MG INH SOL UD 3ML (DUONEB)(J7620) NEB SCH ×4 (02:00→20:00)
[2016-12-26 02:30] VITALS: BP 136/75
[2016-12-26] MEDS: LR 1,000 ML IV SCH ×2 (03:11→16:52)
[2016-12-26] MEDS: SODIUM CHLORIDE 0.9% INJ 10 ML SYR IV SCH ×2 (05:28→14:00)
[2016-12-26 05:30] VITALS: BP 149/65
[2016-12-26] MEDS: ONDANSETRON 4MG/2ML VIAL (J2405) IV PRN ×3 (05:39→17:07)
[2016-12-26] MEDS: PERCOCET 5MG/325MG TAB PO PRN ×4 (05:40→23:13)
[2016-12-26 05:55] LABS: MEAN CORPUSCULAR HEMOGLOBIN 35.1 pg (27.0-33.0); MEAN CORPUSCULAR HGB CONC 31.8 g/dl (32.0-36.5); MEAN CORPUSCULAR VOLUME 110.5 fl (80.0-96.0); RED CELL DISTRIBUTION WIDTH 16.1 % (11.5-14.5); WHITE BLOOD COUNT 4.1 K/mm3 (4.0-10.0)
[2016-12-26 06:00] VITALS: BP_SYST 121; BP_SYST 149; BP_DIAS 22; BP_DIAS 66
[2016-12-26 06:09] LABS: ALBUMIN 2.5 GM/DL (3.2-5.2); ALBUMIN/GLOBULIN RATIO 0.81 (1.00-1.93); ALKALINE PHOSPHATASE 208 U/L (45-117); ALT/SGPT 42 U/L (12-78); ANION GAP 8 MEQ/L (8-16); AST/SGOT 100 U/L (15-37); BILIRUBIN,TOTAL 2.7 MG/DL (0.2-1.0); BLOOD UREA NITROGEN 1 MG/DL (7-18); CALCIUM LEVEL 7.6 MG/DL (8.5-10.1); CARBON DIOXIDE LEVEL 33 MEQ/L (21-32); CHLORIDE LEVEL 102 MEQ/L (98-107); CREATININE FOR GFR 0.48 MG/DL (0.55-1.02); GLOMERULAR FILTRATION RATE > 60.0 (>60); GLUCOSE, FASTING 86 MG/DL (70-105); POTASSIUM SERUM 3.7 MEQ/L (3.5-5.1); SODIUM LEVEL 143 MEQ/L (136-145); TOTAL PROTEIN 5.6 GM/DL (6.4-8.2)
[2016-12-26] MEDS ORDERED: MAG SULF 1GM/100ML (MAG RUN) 1 GM in APPROPRIATE DILUENT 1 EA IV ONE (07:00)
[2016-12-26] MEDS: ADVAIR HFA 45/21MCG INHALER INH SCH ×2 (09:08→21:12)
--- NOTE | 2016-12-26 10:36 | IPNPDOC ---
Text Note Date of Service The patient was seen on 12/26/16. NOTE Subjective: Patient is a 31 year old female with a PMHx of HTN, DLP, COPD, Migraine Headaches, Alcohol Abuse, Hx of Pancreatitis 2/2 alcohol and Chronic lower back pain who presented to the ER with complaints of abdominal pain, subjective fevers and chills. She was found to have an elevated lipase and was admitted for acute pancreatitis. She was also noted to have consumed several shots of vodka daily. Patient was seen and examined at the bedside. Sleeping on my arrival. On wakening, she complained of abdominal pain and leg pain. Objective: Vitals (See below) General: Lying in bed, no acute distress, comfortable, AAOx3 HEENT: NC, AT CVS: RRR, +S1S2 Lungs: Fair air entry b/l, -w/r/r Abdomen: Soft, ND, morbidly obese, LLQ tenderness, +BSx4 Extremities: - Edema, - Calf tenderness Assessment and plan: 1. Acute pancreatitis - likely 2/2 alcohol abuse - still complains of some abdominal pain, no changes from yesterday - History of recurrent pancreatitis of similar etiology in past - Elevated lipase - CT scan 12/20: peripancreatic inflammatory changes consistent with acute pancreatitis, no pseudocyst / abscess / necrotizing - s/p IV fluids - s/p Fentanyl patch and morphine - c/w Symptomatic relief with Zofran and Percocet - clear liquids - advance diet as tolerated 2. Multiple electrolyte abnormalities - continue to replete and follow 3. s/p Hypercarbic respiratory acidosis - likely 2/2 COPD / Hypoventilation 2/2 medications and pain - s/p BIPAP prn 4. Pseudo-elevation in intra-abdominal pressures - likely 2/2 body habitus, pain and BIPAP - s/p measurements 5. s/p DOMINGA 6. Alcohol abuse - Elevated alcohol level on admission - Advised patient to abstain from all alcohol use - continue ativan protocol - c/w Folate, Thiamine and MVI 8. Fatty liver - likely 2/2 alcohol abuse 9. Chronic lower back pain - c/w Pain control 10. Depression - c/w Duloxetine 11. HTN - BP moderately controlled - Lisinopril 20 still on hold (BP controlled without it) - c/w Amlodipine 5 12. Migraine headaches 13. GERD - c/w Protonix; will switch to PO 14. DVT prophylaxis - c/w SCDs; s/p Heparin Disposition: - clear liquids, advance as tolerated - replete electrolytes - requires continued physical therapy VS,Fishbone, I+O VS, Fishbone, I+O Laboratory Tests 12/26/16 05:33 Red Blood Count 3.02 L, Mean Corpuscular Volume 110.5 H, Mean Corpuscular Hemoglobin 35.1 H, Mean Corpuscular Hemoglobin Concent 31.8 L, Red Cell Distribution Width 16.1 H, Calcium Level 7.6 L, Aspartate Amino Transf (AST/SGOT ) 100 H, Alanine Aminotransferase (ALT/SGPT) 42, Alkaline Phosphatase 208 H, Total Bilirubin 2.7 H, Total Protein 5.6 L, Albumin 2.5 L Vital Signs Date Time Temp Pulse Resp B/P (MAP) Pulse Ox O2 Delivery O2 Flow Rate FiO2 12/26/16 06:10 16 12/26/16 06:00 98.3 92 121/66 (84) 89 Room Air 12/23/16 12:00 1.0 12/21/16 06:00 30 I&O- Last 24 Hours up to 6 AM 12/26/16 06:00 Intake Total 1200 ml Output Total 0 ml Balance 1200 ml ALEC VAZQUEZ MD Dec 26, 2016 10:36
[2016-12-26] MEDS: PANTOPRAZOLE 40MG TAB (PROTONIX) PO SCH (11:24)
[2016-12-26] MEDS: DULoxetine 30 MG CAP (CYMBALTA) PO SCH (11:25)
[2016-12-26] MEDS: MULTIVITAMINS/MINERALS THERAP 1 TAB PO SCH (11:26)
[2016-12-26] MEDS: THIAMINE 100 MG TAB PO SCH (11:26)
[2016-12-26] MEDS: amLODIPine 5 MG TAB PO SCH (11:26)
[2016-12-26] MEDS: NEUTRA-PHOS 1.25 GM PACKET PO SCH ×3 (11:28→20:32)
[2016-12-26] MEDS: GABAPENTIN 300 MG CAP PO SCH ×3 (11:28→20:32)
[2016-12-26] MEDS: FOLIC ACID 1 MG TAB PO SCH (11:28)
[2016-12-26] MEDS: hydroCHLOROthiazide 25 MG TAB PO SCH (11:28)
[2016-12-26] MEDS: NYSTATIN 100,000 UNITS/GM TOPICAL PWD 15 GM TOP SCH ×2 (11:32→20:33)
[2016-12-26 14:00] VITALS: BP 121/70
[2016-12-26] MEDS: LORazepam 1 MG TAB PO PRN (18:43)
[2016-12-26 22:00] VITALS: BP 117/73
[2016-12-27] MEDS: IPRATROPIUM 0.5MG/ALBUTEROL 2.5MG INH SOL UD 3ML (DUONEB)(J7620) NEB SCH ×4 (02:00→19:50)
[2016-12-27] MEDS: ONDANSETRON 4MG/2ML VIAL (J2405) IV PRN ×2 (05:53→13:19)
[2016-12-27] MEDS: PERCOCET 5MG/325MG TAB PO PRN ×3 (05:54→20:12)
[2016-12-27 06:00] VITALS: BP 132/82
[2016-12-27] MEDS: hydroCHLOROthiazide 25 MG TAB PO SCH (07:59)
[2016-12-27] MEDS: NEUTRA-PHOS 1.25 GM PACKET PO SCH ×3 (07:59→20:10)
[2016-12-27] MEDS: LR 1,000 ML IV SCH (07:59)
[2016-12-27] MEDS: DULoxetine 30 MG CAP (CYMBALTA) PO SCH (07:59)
[2016-12-27] MEDS: THIAMINE 100 MG TAB PO SCH (08:01)
[2016-12-27] MEDS: GABAPENTIN 300 MG CAP PO SCH ×3 (08:01→20:11)
[2016-12-27] MEDS: MULTIVITAMINS/MINERALS THERAP 1 TAB PO SCH (08:01)
[2016-12-27] MEDS: amLODIPine 5 MG TAB PO SCH (08:01)
[2016-12-27] MEDS: FOLIC ACID 1 MG TAB PO SCH (08:01)
[2016-12-27] MEDS: PANTOPRAZOLE 40MG TAB (PROTONIX) PO SCH (08:01)
[2016-12-27] MEDS: NYSTATIN 100,000 UNITS/GM TOPICAL PWD 15 GM TOP SCH ×2 (08:02→20:13)
[2016-12-27] MEDS: ADVAIR HFA 45/21MCG INHALER INH SCH ×2 (08:59→19:49)
[2016-12-27 14:00] VITALS: BP 126/76
[2016-12-27] MEDS ORDERED: THIA100TA PO (14:00)
[2016-12-27] MEDS ORDERED: FOLI1TAB4 PO (14:00)
[2016-12-27] MEDS ORDERED: ONDANSETRON 4 MG ORAL DISINTEGRATING TAB (S0181) PO PRN (14:00)
--- NOTE | 2016-12-27 14:08 | IPNPDOC ---
Text Note Date of Service The patient was seen on 12/27/16. NOTE Subjective: Patient is a 31 year old female with a PMHx of HTN, DLP, COPD, Migraine Headaches, Alcohol Abuse, Hx of Pancreatitis 2/2 alcohol and Chronic lower back pain who presented to the ER with complaints of abdominal pain, subjective fevers and chills. She was found to have an elevated lipase and was admitted for acute pancreatitis. She was also noted to have consumed several shots of vodka daily. Patient was seen and examined at the bedside. Sleeping on my arrival. On wakening, she complained of abdominal pain. Objective: Vitals (See below) General: Lying in bed, no acute distress, comfortable, AAOx3 HEENT: NC, AT CVS: RRR, +S1S2 Lungs: Fair air entry b/l, -w/r/r Abdomen: Soft, ND, morbidly obese, generalized tenderness, +BSx4 Extremities: - Edema, - Calf tenderness Assessment and plan: 1. Acute pancreatitis - likely 2/2 alcohol abuse - still complains of some abdominal pain, no changes from yesterday - History of recurrent pancreatitis of similar etiology in past - CT scan 12/20: peripancreatic inflammatory changes consistent with acute pancreatitis, no pseudocyst / abscess / necrotizing - s/p IV fluids - s/p Fentanyl patch and morphine - c/w Symptomatic relief with Zofran (PO) and Percocet - advancing diet as tolerated 2. Multiple electrolyte abnormalities - continue to replete and follow 3. s/p Hypercarbic respiratory acidosis - likely 2/2 COPD / Hypoventilation 2/2 medications and pain - s/p BIPAP prn 4. Pseudo-elevation in intra-abdominal pressures - likely 2/2 body habitus, pain and BIPAP - s/p measurements 5. s/p DOMINGA 6. Alcohol abuse - Elevated alcohol level on admission - Advised patient to abstain from all alcohol use - continue ativan protocol - c/w Folate, Thiamine and MVI 8. Fatty liver - likely 2/2 alcohol abuse 9. Chronic lower back pain - c/w Pain control 10. Depression - c/w Duloxetine 11. HTN - BP moderately controlled - Lisinopril 20 still on hold (BP controlled without it) - c/w Amlodipine 5 12. Migraine headaches 13. GERD - c/w Protonix; will switch to PO 14. DVT prophylaxis - c/w SCDs; s/p Heparin Disposition: - advance diet as tolerated - requires continued physical therapy VS,Fishbone, I+O VS, Fishbone, I+O Vital Signs Date Time Temp Pulse Resp B/P (MAP) Pulse Ox O2 Delivery O2 Flow Rate FiO2 12/27/16 13:19 17 12/27/16 11:50 Room Air 12/27/16 08:01 100 132/82 12/27/16 06:00 97.8 90 12/23/16 12:00 1.0 12/21/16 06:00 30 I&O- Last 24 Hours up to 6 AM 12/27/16 06:00 Intake Total 2095 ml Output Total 1250 ml Balance 845 ml ALEC VAZQUEZ MD Dec 27, 2016 14:08
[2016-12-27] MEDS: LORazepam 1 MG TAB PO PRN (20:12)
[2016-12-27 20:15] VITALS: BP 125/75
[2016-12-27 22:00] VITALS: BP 129/76
[2016-12-28] MEDS: IPRATROPIUM 0.5MG/ALBUTEROL 2.5MG INH SOL UD 3ML (DUONEB)(J7620) NEB SCH ×3 (01:28→13:39)
[2016-12-28] MEDS: PERCOCET 5MG/325MG TAB PO PRN ×2 (02:13→09:25)
[2016-12-28 05:59] LABS: ADD MORPHOLOGY? YES; BASO % 0.4 % (0.0-1.0); EOS # 0.1 K/mm3 (0.0-0.50); EOS % 2.8 % (0.0-3.0); LARGE UNSTAINED CELL # 0.1 K/mm3 (0.0-0.4); LARGE UNSTAINED CELL % 1.7 % (0.0-4.0); LYMPH # 1.5 K/mm3 (1.5-4.5); LYMPH % 26.7 % (24.0-44.0); MEAN CORPUSCULAR HEMOGLOBIN 34.3 pg (27.0-33.0); MEAN CORPUSCULAR HGB CONC 30.6 g/dl (32.0-36.5); MONO # 0.5 K/mm3 (0.0-0.8); NEUTROPHILS % 58.4 % (36.0-66.0); PLATELET COUNT, AUTOMATED 168 k/mm3 (150-450); RED CELL DISTRIBUTION WIDTH 16.5 % (11.5-14.5); WHITE BLOOD COUNT 5.1 K/mm3 (4.0-10.0)
[2016-12-28 06:00] VITALS: BP 125/72
[2016-12-28 06:12] LABS: ALBUMIN 2.5 GM/DL (3.2-5.2); ALBUMIN/GLOBULIN RATIO 0.64 (1.00-1.93); ALKALINE PHOSPHATASE 219 U/L (45-117); ALT/SGPT 42 U/L (12-78); ANION GAP 8 MEQ/L (8-16); AST/SGOT 93 U/L (15-37); BLOOD UREA NITROGEN 1 MG/DL (7-18); CALCIUM LEVEL 8.8 MG/DL (8.5-10.1); CARBON DIOXIDE LEVEL 32 MEQ/L (21-32); CHLORIDE LEVEL 100 MEQ/L (98-107); GLOMERULAR FILTRATION RATE > 60.0 (>60); GLUCOSE, FASTING 133 MG/DL (70-105); MAGNESIUM LEVEL 1.7 MG/DL (1.8-2.4); POTASSIUM SERUM 3.9 MEQ/L (3.5-5.1); SODIUM LEVEL 140 MEQ/L (136-145); TOTAL PROTEIN 6.4 GM/DL (6.4-8.2)
[2016-12-28 06:35] LABS: ANISOCYTOSIS 2+; POIKILOCYTOSIS 1+; POLYCHROMASIA 1+
[2016-12-28] MEDS ORDERED: MAG SULF 1GM/100ML (MAG RUN) 1 GM in APPROPRIATE DILUENT 1 EA IV ONE (07:00)
[2016-12-28] MEDS: ADVAIR HFA 45/21MCG INHALER INH SCH (07:44)
[2016-12-28] MEDS: NEUTRA-PHOS 1.25 GM PACKET PO SCH (07:52)
[2016-12-28] MEDS: THIAMINE 100 MG TAB PO SCH (07:52)
[2016-12-28] MEDS: DULoxetine 30 MG CAP (CYMBALTA) PO SCH (07:53)
[2016-12-28] MEDS: GABAPENTIN 300 MG CAP PO SCH (07:53)
[2016-12-28] MEDS: hydroCHLOROthiazide 25 MG TAB PO SCH (07:53)
[2016-12-28] MEDS: FOLIC ACID 1 MG TAB PO SCH (07:53)
[2016-12-28] MEDS: MULTIVITAMINS/MINERALS THERAP 1 TAB PO SCH (07:53)
[2016-12-28 07:54] VITALS: BP 131/74
[2016-12-28] MEDS: PANTOPRAZOLE 40MG TAB (PROTONIX) PO SCH (07:54)
[2016-12-28] MEDS: amLODIPine 5 MG TAB PO SCH (07:54)
[2016-12-28] MEDS: NYSTATIN 100,000 UNITS/GM TOPICAL PWD 15 GM TOP SCH (07:55)
[2016-12-28 08:00] VITALS: BP 131/74
[2016-12-28] MEDS: LORazepam 1 MG TAB PO PRN (09:27)
--- NOTE | 2016-12-28 09:39 | IPNPDOC ---
Text Note Date of Service The patient was seen on 12/28/16. NOTE Subjective: Patient is a 31 year old female with a PMHx of HTN, DLP, COPD, Migraine Headaches, Alcohol Abuse, Hx of Pancreatitis 2/2 alcohol and Chronic lower back pain who presented to the ER with complaints of abdominal pain, subjective fevers and chills. She was found to have an elevated lipase and was admitted for acute pancreatitis. She was also noted to have consumed several shots of vodka daily. Patient was seen and examined at the bedside. Tolerating regular diet. Objective: Vitals (See below) General: Sitting at edge of bed, no acute distress, comfortable, AAOx3 HEENT: NC, AT CVS: RRR, +S1S2 Lungs: Fair air entry b/l, -w/r/r Abdomen: Soft, ND, morbidly obese, NT, +BSx4 Extremities: - Edema, - Calf tenderness Assessment and plan: 1. Acute pancreatitis - likely 2/2 alcohol abuse - tolerating diet - History of recurrent pancreatitis of similar etiology in past - CT scan 12/20: peripancreatic inflammatory changes consistent with acute pancreatitis, no pseudocyst / abscess / necrotizing - s/p IV fluids - s/p Fentanyl patch and morphine - c/w Symptomatic relief with Zofran (PO) and Percocet 2. Multiple electrolyte abnormalities - continue to replete and follow 3. s/p Hypercarbic respiratory acidosis - likely 2/2 COPD / Hypoventilation 2/2 medications and pain - s/p BIPAP prn 4. Pseudo-elevation in intra-abdominal pressures - likely 2/2 body habitus, pain and BIPAP - s/p measurements 5. s/p DOMINGA 6. Alcohol abuse - Elevated alcohol level on admission - Advised patient to abstain from all alcohol use - continue ativan protocol - c/w Folate, Thiamine and MVI 8. Fatty liver - likely 2/2 alcohol abuse 9. Chronic lower back pain - c/w Pain control 10. Depression - c/w Duloxetine 11. HTN - BP moderately controlled - Lisinopril 20 still on hold (BP controlled without it) - c/w Amlodipine 5 12. Migraine headaches 13. GERD - c/w Protonix; will switch to PO 14. DVT prophylaxis - c/w SCDs; s/p Heparin Disposition: - still requiring PT for safe discharge VS,Fishbone, I+O VS, Foxbone, I+O Laboratory Tests 12/28/16 05:35 Red Blood Count 3.17 L, Mean Corpuscular Volume 112.0 H, Mean Corpuscular Hemoglobin 34.3 H, Mean Corpuscular Hemoglobin Concent 30.6 L, Red Cell Distribution Width 16.5 H, Neutrophils (%) (Auto) 58.4, Lymphocytes (%) (Auto) 26.7, Monocytes (%) (Auto) 10.0 H, Eosinophils (%) (Auto) 2.8, Basophils (%) ( Auto) 0.4, Neutrophils # (Auto) 3.0, Lymphocytes # (Auto) 1.5, Monocytes # (Auto ) 0.5, Eosinophils # (Auto) 0.1, Basophils # (Auto) 0.0, Calcium Level 8.8 #, Aspartate Amino Transf (AST/SGOT) 93 H, Alanine Aminotransferase (ALT/SGPT) 42, Alkaline Phosphatase 219 H, Total Bilirubin 2.0 H, Total Protein 6.4, Albumin 2.5 L Vital Signs Date Time Temp Pulse Resp B/P (MAP) Pulse Ox O2 Delivery O2 Flow Rate FiO2 12/28/16 09:25 18 12/28/16 07:54 94 131/74 12/28/16 06:00 97.2 90 Room Air 12/23/16 12:00 1.0 I&O- Last 24 Hours up to 6 AM 12/28/16 06:00 Intake Total 1560 ml Output Total 1800 ml Balance -240 ml ALEC VAZQUEZ MD Dec 28, 2016 09:39
[2016-12-28] MEDS ORDERED: PERC2.5T PO ×2 (13:04→16:32)
--- NOTE | 2017-01-01 23:48 | DS.PDOC ---
Discharge Summary General Date of Admission Dec 19, 2016 at 05:16 Date of Discharge 12/28/16 Specialist/Consultants Involve: Cesar Mckenzie Jr Discharge Summary DISCHARGE DIAGNOSES: 1. Acute pancreatitis 2. Alcohol abuse 3. Recurrent pancreatitis 4. Non-compliance 5. Depression 6. Substance abuse 7. HTN 8. BPV 9. Chronic migraines 10 Asthma/COPD COMPLICATIONS/CHIEF COMPLAINT: Acute Pancreatitis/Etoh Abuse. HOSPITAL COURSE: 31 yo female admitted for acute pancreatitis. Admitted with NPO status, IV fluids, pain control. Surgery consulted for further assistance. Diet slowly advanced, pain did slowly improve. Difficult to assess acuity of pain given her chronic co-morbidities. Patient was anxious to be discharged and resume care at home. Voiced understanding for dietary modifications and importance of compliance including but not limited to medical appointments and medications. DISCHARGE MEDICATIONS: Please see below. ALLERGIES: Please see below. PHYSICAL EXAMINATION ON DISCHARGE: VITAL SIGNS: Please see below. GENERAL: NAD, lying comfortably in bed HEENT: NC/AT NECK: supple CARDIOVASCULAR EXAMINATION: +s1s2, rrr RESPIRATORY EXAMINATION: cta b/l ABDOMINAL EXAMINATION: soft, nt, +bs, obese EXTREMITIES: no edema LABORATORY DATA: Please see below. ACTIVITY: [As tolerated]. DIET: as tolerated DISPOSITION: 01 Home, Self-Care. DISCHARGE INSTRUCTIONS: 1. follow up with pcp as scheduled 2. Refrain from alcohol and illicit drug abuse 3. Dietary modifications as discussed. DISCHARGE CONDITION: [Stable]. TIME SPENT ON DISCHARGE: Greater than 30 minutes. Vital Signs/I&Os Vital Signs Date Time Temp Pulse Resp B/P (MAP) Pulse Ox O2 Delivery O2 Flow Rate FiO2 12/28/16 12:33 Room Air 12/28/16 10:07 18 12/28/16 08:00 96 131/74 12/28/16 06:00 97.2 90 Discharge Medications Scheduled Amlodipine Besylate (Amlodipine Besylate) 5 Mg Tab, 5 MG PO DAILY, (Reported) Duloxetine Hcl (Cymbalta) 60 Mg Cap, 60 MG PO DAILY, (Reported) Folic Acid (Folic Acid) 1 Mg Tab, 1 MG PO DAILY Gabapentin (Gabapentin) 600 Mg Tab, 600 MG PO TID, (Reported) Hydrochlorothiazide (Hydrochlorothiazide) 25 Mg Tab, 25 MG PO DAILY, (Reported) Multivitamins *[facility] STOCKED* (Thera M Plus *[facility] STOCKED*) 1 Tab Tab, 1 TAB PO DAILY, (Reported) Omeprazole (Omeprazole) 20 Mg Cap, 20 MG PO DAILY, (Reported) Salmeterol/Fluticasone (Advair Diskus 100-50 Mcg/Dose) 28 Puff/Inhaler Aerp, 1 PUFF INH BID, (Reported) Thiamine Hcl (Thiamine Hcl) 100 Mg Tab, 100 MG PO DAILY Scheduled PRN (Refresh Optive 0.5-0.9 %) 1 Raheem Raheem, 1 DROP OU QID PRN for DRY EYES, (Reported ) Cyclobenzaprine HCl (Cyclobenzaprine HCl) 10 Mg Tab, 10 MG PO BID PRN for MUSCLE SPASMS, (Reported) Meclizine HCl (Meclizine HCl) 12.5 Mg Tab, 12.5 MG PO Q6H PRN for MOTION SICKNESS, (Reported) Oxycodone/Acetaminophen (Percocet 2.5-325 mg) 1 Tab Tab, 1 TAB PO Q6HP PRN for ABDOMINAL PAIN Sumatriptan Succinate (Sumatriptan Succinate) 100 Mg Tab, 100 MG PO ASDIRECTED PRN for MIGRAINE, (Reported) Allergies Coded Allergies: Morphine (Verified Allergy, Unknown, 12/19/16) ALEC VAZQUEZ MD Jan 01, 2017 23:48
[2017-03-23] MEDS ORDERED: CYCL10TA PO (13:13)
[2017-03-23] MEDS ORDERED: THIA100T6 PO (13:13)
[2017-03-23] MEDS ORDERED: FOLI1TAB4 PO (13:13)
[2017-03-25] MEDS ORDERED: MORP2SY IV ×2 (16:22)
[2017-03-25] MEDS ORDERED: OXAZ10CA3 PO (16:22)
[2017-03-25] MEDS ORDERED: PENT40TASA PO (16:22)
[2017-03-25] MEDS ORDERED: LOVE1INJ SC (16:22)
[2017-03-25] MEDS ORDERED: FIRS1SOL3 PO (16:22)
[2017-03-25] MEDS ORDERED: PROT40IN4 IV (16:22)
[2017-03-25] MEDS ORDERED: ONDA4VLL IV (16:22)
[2017-03-25] MEDS ORDERED: OXAZ15CA4 PO (16:22)
== END 2016-12-28 15:24 | disposition home or self-care (01) | DRG 439 ==
LOC: M ED 01:58 → EDBD 01:58 → M ED INP 05:16 → M MSPAV 06:09 → M ICU 12-20 08:12 → M PCU 12-23 12:29 → M MSPAV 12-24 19:06
PROVIDERS: ADMIT Hospitalist; ATTEND Internal Medicine
PROC: 02H633Z Insertion of Infusion Device into Right Atrium, Percutaneous Approach (ICD-10-PCS; principal; 2016-12-21)
DX: K85.20 Alcohol induced acute pancreatitis without necrosis or infection (principal); E87.2 Acidosis; N17.9 Acute kidney failure, unspecified; F10.20 Alcohol dependence, uncomplicated; Z88.5 Allergy status to narcotic agent; I10 Essential (primary) hypertension; K21.9 Gastro-esophageal reflux disease without esophagitis; J44.9 Chronic obstructive pulmonary disease, unspecified; H81.10 Benign paroxysmal vertigo, unspecified ear; M54.5 Low back pain; G43.709 Chronic migraine without aura, not intractable, without status migrainosus; E66.01 Morbid (severe) obesity due to excess calories; K52.9 Noninfective gastroenteritis and colitis, unspecified; E87.8 Other disorders of electrolyte and fluid balance, not elsewhere classified; K86.1 Other chronic pancreatitis; Z91.19 Patient's noncompliance with other medical treatment and regimen; F19.10 Other psychoactive substance abuse, uncomplicated; Z68.42 Body mass index [BMI] 45.0-49.9, adult